=== PATIENT | male | born 1945 | race Caucasian/White ===

== ENCOUNTER 2016-09-29 18:32 | Emergency (ER) | payer MEDICARE, BC ==
[2016-09-29 19:58] VITALS: BP 146/63
[2016-09-29] MEDS ORDERED: DOXYcycline CAP(*) 100 MG PO ONE (20:05)
--- NOTE | 2016-09-29 20:13 | UC ---
Lower Extremity/Ankle HPI - HPI Summary HPI Summary: Noticed spot on R upper thigh today, thinks it's a tick. Last spent time outside 2 days ago, not sure when else he would have gotten it. - History of Current Complaint Chief Complaint: WILLISkin Stated Complaint: TICK BITE Time Seen by Provider: 09/29/16 20:00 Hx Obtained From: Patient Onset/Duration: Lasting Days Severity Initially: Mild Severity Currently: Mild Alleviating Factor(s): Rest Able to Bear Weight: Yes - Allergies/Home Medications Allergies/Adverse Reactions: Allergies Allergy/AdvReac Type Severity Reaction Status Date / Time No Known Allergies Allergy Verified 09/29/16 19:58 Home Medications: Home Medications Supplements* 09/29/16 [History] PMH/Surg Hx/FS Hx/Imm Hx Previously Healthy: Yes - Surgical History Surgical History: Yes Surgery Procedure, Year, and Place: cardiac ablation, pyloric stenosis as a (1944) - Family History Known Family History: Positive: Other - mother - breast/lung CA, dementia - both parents - Social History Lives: With Family Alcohol Use: Daily Alcohol Amount: 1-2 drinks daily Substance Use Type: None Smoking Status (MU): Never Smoked Tobacco Have You Smoked in the Last Year: No Review of Systems Constitutional: Negative Skin: Other - R thigh tick bite Eyes: Negative ENT: Negative Respiratory: Negative Cardiovascular: Negative Gastrointestinal: Negative Genitourinary: Negative Motor: Negative Neurovascular: Negative Musculoskeletal: Negative Neurological: Negative Psychological: Negative All Other Systems Reviewed And Are Negative: Yes Physical Exam Triage Information Reviewed: Yes Appearance: Well-Appearing, No Pain Distress, Well-Nourished Vital Signs: Initial Vital Signs Temp 97.4 F 09/29/16 19:54 Pulse 63 09/29/16 19:54 Resp 16 09/29/16 19:54 BP 146/63 09/29/16 19:54 Vital Signs Reviewed: Yes Eye Exam: Normal Eyes: Positive: Conjunctiva Clear ENT Exam: Normal ENT: Positive: Normal ENT inspection, Hearing grossly normal, Pharynx normal, TMs normal Dental Exam: Normal Neck exam: Normal Neck: Positive: Supple, Nontender, No Lymphadenopathy Respiratory Exam: Normal Respiratory: Positive: Chest non-tender, Lungs clear, Normal breath sounds, No respiratory distress, No accessory muscle use Cardiovascular Exam: Normal Cardiovascular: Positive: RRR, No Murmur Musculoskeletal Exam: Normal Musculoskeletal: Positive: ROM Intact Neurological Exam: Normal Neurological: Positive: Alert Psychological Exam: Normal Skin Exam: Other - small tick, appears engorged, removed from R thigh on exam with tick twisters. Pt [place] well. Lower Extremity Course/Dx - Differential Dx/Diagnosis Provider Diagnoses: Tick bite R thigh Discharge - Discharge Plan Condition: Stable Disposition: HOME Patient Education Materials: Tick Bite (ED) Referrals: Sabina King MD [Primary Care Provider] - 2 Weeks Additional Instructions: TICK BITE: You have been bitten by a tick. Once the tick is removed, these "bites" usually cause no problems. Tick fever, tick paralysis, [place] Spotted fever, and Lyme disease are uncommon -- but you should mention this tick bite to your doctor if you develop unusual symptoms in the next several weeks. If you develop any of the following, please see your physician promptly: (1) Fever, chills, or generalized malaise associated with a headache. (2) A red round area at the site of the bite (or elsewhere) (3) Joint pain, joint swelling or generalized weakness. (4) Redness, swelling, or drainage at the site of the bite. Check yourself, your children and your pets for ticks whenever you've been in an area where ticks live. To remove a tick, grasp it firmly with some tweezers or a string in a slipknot as close to its head as possible and pull it steadily. Ticks do not have a typical "head" attached to their body. There are mouth parts sticking out which they use to feed. If there are mouth parts left behind in the wound there is NO increased risk of Lyme infection; however, the chances of a bacterial skin infection (cellulitis) are higher. If mouth parts remain after tick removal, the best thing to do is apply warm soaks to the area 3-4 times per day to encourage the skin to expel the foreign material. DOXYCYCLINE: Doxycycline (Vibramycin, Doryx) is an antibiotic of the tetracycline family. This type of drug is useful for infections of the respiratory tract and genital tract, and is sometimes used for intestinal infections. Unlike most tetracyclines, doxycycline can be taken with food. It is longer acting, and (usually) less prone to side effects than regular tetracycline. Tetracycline antibiotics can stain immature teeth and SHOULD NOT BE TAKEN BY CHILDREN, NURSING MOTHERS, OR WOMEN. Tetracyclines can make you more prone to sunburn. Abdominal cramping, nausea, and diarrhea are occasional side effects. Women may experience vaginal yeast infections. Call the doctor at once if you develop hives, itching, shortness of breath , or lightheadedness. WHEN A TICK IS NOT ENGORGED AND HAS BEEN ON LESS THAN 24 HOURS - THE RISK FOR LYME IS NEGLIGIBLE. YOU CAN REMOVE THE TICK AND OBSERVE THE AREA ON YOUR OWN. FOLLOW-UP CARE: You should contact your private physician for follow-up care if you develop spreading redness near the site of the bite or on any other areas of the body. If you are unable to get a timely appointment, or if you are worsening, call us or return for re-evaluation.
== END 2016-09-29 20:20 | disposition home or self-care (01) ==
LOC: UCEAST 18:32
DX: S70.361A Insect bite (nonvenomous), right thigh, initial encounter (principal); W57.XXXA Bitten or stung by nonvenomous insect and other nonvenomous arthropods, initial encounter
CPT/HCPCS: 99212; A9270-GY; G0463

== ENCOUNTER 2017-10-09 09:16 | Emergency (ER) | payer MEDICARE, BC ==
[2017-10-09 09:29] VITALS: BP 134/67
--- OUTSIDE RECORDS SUMMARY | 2017-10-09 09:31 | XMS REPORT ---
:1945 External Reference #:[id number] Author Organization [facility] Address [address] [place] [address] Phone [phone] Care Team Providers Name Role Phone Sabina Rodriguez M.D., R.DLoli Primary Care Physician Unavailable Payers Type Date Identification Numbers Payment Provider Subscriber Medicare Primary Effective: Policy Number: Medicare - Bswny Chapin Bojorquez 2011 [id number] [facility] PayID: [id number] [address] [place] [address] Medigap Part B Effective: Policy Number: [facility](Hien Bojorquez 1999 [id number] Group Name: [facility] [address] PayID: [id number] [place] [address] Problems Date Description Provider Status Onset: 09/10/2011 Anemia Sabina Rodriguez M.D., R.D. Active Onset: 09/10/2011 Pure hypercholesterolemia Sabina Rodriguez M.D., R.D. Active Onset: 09/10/2011 Disorder of prostate Sabina Rodriguez M.D., R.D. Active Onset: 09/10/2011 Atrial fibrillation Sabina Rodriguez M.D., R.D. Resolved Resolved: 02/23/2012 Family History Date Family Member(s) Problem(s) Comments Father Gallstones Father Dementia Father Allergies penicillin : (1991) Father due to Unknown Heart attack or stroke Causes -- collapsed and Mother Cancer, Breast single mastectomy, no recurrance Mother Cancer, Lung in final year of her life. Not cause of . Mother Hypertension Mother Dementia severe in final two years or so : Mother due to Unknown preceded by (07/1996) Causes multiple infarcts over time First Daughter Diagnosed with anorexia Diagnosed with anorexia August 2009. Treated by August 2009. Treated by security incident response specialist, therapist, security incident response specialist, therapist, physician. By Apr 2011 regained normal weight (gain of 28 lbs)and normal eating. First Brother Alive And Well 2 YRS YOUNGER. Social History Type Date Description Comments Marital Status Lives With Spouse Lives With --D[facility] as Of Fall 2005. Diet Healthy, Well Balanced Occupation Works for [employer] in [place]. once a week. Mostly from home but goes there Occupation Retired August 01, 2011 Cigarette Use Never Smoked Cigarettes ETOH Use Currently consumes alcohol ETOH Use Rarely consumes beer ETOH Use Currently consumes 1 glasses of wine daily Smoking Patient has never smoked Daily Caffeine Consumes on average 1 cup of coffee per day Exercise Type/Frequency exercises regularly Exercise Type/Frequency . Goes to gym. Rows on machine. Allergies, Adverse Reactions, Alerts Date Description Reaction Status Severity Comments 06/24/2009 NKDA active Medications Medication Date Status Form Strength Qnty SIG Indications Ordering Provider Fish Oil 03/06 Active Capsules 1000mg 1 by mouth every day Reba Rodriguez, R.D. Niaspan 03/06 Active Tablets ER 500mg 180ta 1 po bid E78.0 bs Reba Rodriguez, R.D. Vitamin B-6 09/01 Active Tablets 34mg Sabina P5P Reba Rodriguez, R.D. Turmeric 09/01 Active Capsules 500mg 1 po qd Sabina Reba Rodriguez, R.D. Brain Energizer 08/13 Active alpha lipoic acidMichael curcumin, M.D., Dha, CoQ 10 R.D. Multivitamins 05 Active Tablets 30tab [id number] s Ultra 1 po danay Rodriguez M.D., R.D. Co-Enzyme Q10 09/09 Active Capsules 100mg 2 po qd Reba Rodriguez, R.D. Mens 50+ Multi Active Tablets Unknown Vitamin & /0000 Mineral Formula Immune Enhance Active Tablets Unknown / Prednisolone Active Suspension 1% Unknown Acetate Econazole Active Cream 1% apply to Unknown Nitrate rash twice a day Triamcinolone Active Cream 0.025% apply a Unknown Acetonide small amount to affected area 2 times a day Cephalexin 03/02 Hx Tablets 500mg 14tab 1 tablet by H60.11 s mouth twice [place] - daily for 7 III, 05/10 days PHYSICIAN NEONATOLOGY-C /2017 Niaspan 08/13 Hx Tablets ER 1000mg 90tab 1po a day E78.0 Neri Clark M.D., 03/06 R.D. Krill Oil 05/10 Hx Capsules 1000mg omega 3s astaxanthhilary Rodriguez, Neri 1 po qd M.DLoli, 03/06 R.D. /2015 Azithromycin 03/21 Hx Tablets 250mg 6tabs 2 po qd x 1 day, then 1 K.W. - po qd Juan, 04/05 M.D. Levaquin 01/24 Hx Tablets 500mg 10tab one qd x10 s days Miranda Martinez, 02/20 M.D. /2012 Doxycycline 11/[address] 100mg 2caps 2 po now for 911.4 Shawnti Hycl Part possible Rubina Anna, - lyme disease PHYSICIAN NEONATOLOGY-C 11/17 exposure /2012 Pradaxa 09/09 Hx Capsules 150mg 60cap 1 po bid Neri Clark M.D., 02/22 R.D. Magnesium Oxide 09/09 Hx Tablets 400mg Sabina Neri Rodriguez M.D., 01/26 R.D. Fish Oil 09/09 Hx Capsules 1000mg 1 po qd Neri Rodriguez M.D., 05/10 R.D. /2013 Physical 01/14 Hx Evaluate and Sabina treat left Neri Rodriguez M.D., 01/26 pain R.D. /2011 Levitra 06/24 Hx 302.72 Sabina Neri Rodriguez M.D., 05/10 R.D. /2013 Diltiazem CD 06/22 Hx Caps ER 120mg 1 qd Cheikh 24HR Osvaldo He M.D. 01/26 Aspirin 06/22 Hx Tablets 81mg 1 po qd Cheikh Osvaldo He M.D. 06/26 Coumadin 07/21 Hx Tablets 7.5mg Cheikh Osvaldo He M.D. 06/22 Flecanide 07/21 Hx 150 bid Cheikh Osvaldo He M.D. 01/26 Diltiazem CD 07/21 Hx Caps ER 240mg Cheikh 24HR Osvaldo He M.D. 06/22 Physical 05/25 Hx eval and Rx Shawnti Therapy as indicated Rubina Anna, - for elbow PHYSICIAN NEONATOLOGY-C 06/22 pain Hearing 03/03 Hx Medically Cheikh Evaluation- Clear For Lessinger Ears Hearing - Reba Soto 06/22 Hearing Eval And Hearing AIDS If Appropriate. Lovenox 12/19 Hx Injection 80mg/0.8 1unit 1 q12h Cheikh Graduate ML s Osvaldo Prefilled Reba He Syringes 03/03 Coumadin 12/19 Hx Tablets 7.5mg 30tab 1 po qd Cheikh /2004 s Osvaldo He M.D. 03/03 Niacin 11/10 Hx Tablets 500mg 2100 mg qd Sabina Neri Rodriguez M.D., 08/13 R.D. /2014 Viagra 11/10 Hx Tablets 50mg 6tabs 1/2-1 Tab Cheikh /2004 Before Osvaldo Montes M.D. 06/22 Cialis 11/10 Hx Tablets 20mg 3tabs Cheikh Osvaldo He M.D. 03/03 Triamcinolone 11/09 Hx 0.1% 30gm Apply bid to Cheikh 0.1% Cream /2002 affected Osvaldo - Reba du 12/09 Amoxicillin 10/08 Hx 500 63uni One tid X 21 Joanna /2001 ts Days Tima Oshea, 11/09 F.N.P.C. /2002 Diltiazem CD Hx Capsules 120mg 30cap 1 po qd Brand, /0000 s Neri Doty MD 12/09 Niaspan Hx Capsules 500mg Brand, /0000 Neri Doty MD 11/10 Diltiazem CD / Hx Capsules 180mg 1 po qd Brand, /0000 Neri Doty MD 03/11 Immunizations CPT Code Status Date Vaccine Lot # [id number] Given 04/08/2017 Influenza Virus Vaccine, Quadrivalent, 3 Yr > Quad, Preserv Free 69631 Given 02/27/2016 [place] [address] Given 06/04/2015 [place] [address] Given 08/13/2014 Prevnar-13 Pneumococcal Conjugate Vaccine [id number] 06067 Given 04/06/2013 Pneumovax 23 (PPSV23) 65+ years or high risk 2 to [id number] 63 year old 69736 Given 04/06/2013 Influenza Vaccine-Preservative Free 3 Yrs And [id number] Above 31494 Given 05/19/2012 Influenza Vaccine-Preservative Free 3 Yrs And Above 24058 Given 02/28/2011 Influenza Vaccine-Preservative Free 3 Yrs And Above 81199 Given 06/22/2008 Zoster Vaccine [id number] 71956 Given 03/11/2007 Tdap (Adacel) [id number] 79741 Given 03/11/2007 Influenza Virus Vaccine, 3 Yrs And Above [id number] 75508 Given 11/10/1994 DT (Adult) Vital Signs Date Vital Result Comment 09/10/2017 Weight 178.00 lb Weight in kg's 80.741 BP Systolic 144 mmHg BP Diastolic 72 mmHg Heart Rate 80 /min Body Temperature 97.8 F Respiratory Rate 16 /min 05/10/2017 Weight 184.00 lb Weight in kg's 83.462 BP Systolic 132 mmHg BP Diastolic 62 mmHg Heart Rate 68 /min Body Temperature 97.5 F Respiratory Rate 16 /min 04/12/2017 BP Systolic 130 mmHg BP Diastolic 62 mmHg Heart Rate 68 /min Body Temperature 97.3 F Respiratory Rate 15 /min 03/02/2017 Weight 180.00 lb Weight in kg's 81.648 BP Systolic 120 mmHg BP Diastolic 60 mmHg Heart Rate 68 /min Body Temperature 96.5 F 11/20/2016 Weight 179.00 lb Weight in kg's 81.194 BP Systolic 118 mmHg BP Diastolic 64 mmHg Heart Rate 56 /min Body Temperature 96.2 F Respiratory Rate 16 /min 09/23/2016 Weight 180.00 lb Weight in kg's 81.648 BP Systolic 148 mmHg BP Diastolic 60 mmHg Heart Rate 84 /min Body Temperature 97.4 F Respiratory Rate 16 /min Height 75.25 inches 6'3.25" BMI (Body Mass Index) 22.3 kg/m2 03/06/2016 Weight 177.00 lb Weight in kg's 80.287 BP Systolic 122 mmHg BP Diastolic 60 mmHg Heart Rate 64 /min Body Temperature 96.1 F Respiratory Rate 16 /min Height 76 inches 6'4" BMI (Body Mass Index) 21.5 kg/m2 O2 % BldC Oximetry 98 % 09/02/2015 Weight 178.00 lb Weight in kg's 80.741 BP Systolic 140 mmHg BP Diastolic 50 mmHg Heart Rate 68 /min 12/20/2014 Weight 172.00 lb Weight in kg's 78.019 BP Systolic 120 mmHg BP Diastolic 58 mmHg Heart Rate 68 /min 08/13/2014 Weight 178.00 lb Weight in kg's 80.741 BP Systolic 118 mmHg BP Diastolic 50 mmHg Heart Rate 68 /min Height 76 inches 6'4" BMI (Body Mass Index) 21.7 kg/m2 07/04/2014 Weight 181.00 lb Weight in kg's 82.102 BP Systolic 130 mmHg BP Diastolic 60 mmHg Heart Rate 56 /min 05/10/2013 Weight 176.00 lb Weight in kg's 79.834 BP Systolic 126 mmHg BP Diastolic 64 mmHg Heart Rate 84 /min Height 76 inches 6'4" BMI (Body Mass Index) 21.4 kg/m2 04/06/2013 Weight 179.00 lb Weight in kg's 81.194 BP Systolic 124 mmHg BP Diastolic 60 mmHg Heart Rate 68 /min Body Temperature 98.0 F O2 % BldC Oximetry 98 % 03/20/2013 Weight 179.00 lb Weight in kg's 81.194 BP Systolic 144 mmHg BP Diastolic 64 mmHg Heart Rate 72 /min Body Temperature 97.7 F O2 % BldC Oximetry 99 % 02/20/2013 Weight 176.00 lb Weight in kg's 79.834 BP Systolic 120 mmHg BP Diastolic 60 mmHg Heart Rate 68 /min O2 % BldC Oximetry 99 % level at rest 01/24/2013 Weight 175.00 lb Weight in kg's 79.380 BP Systolic 124 mmHg BP Diastolic 74 mmHg Heart Rate 82 /min Body Temperature 98.4 F O2 % BldC Oximetry 99 % 11/08/2012 Weight 177.00 lb Weight in kg's 80.287 BP Systolic 126 mmHg BP Diastolic 68 mmHg Heart Rate 63 /min Body Temperature 97.2 F O2 % BldC Oximetry 99 % 11/07/2012 Weight 175.00 lb Weight in kg's 79.380 BP Systolic 126 mmHg BP Diastolic 58 mmHg Heart Rate 64 /min 03/03/2012 Weight 179.00 lb Weight in kg's 81.194 BP Systolic 144 mmHg BP Diastolic 60 mmHg Heart Rate 80 /min 02/22/2012 Weight 180.00 lb Weight in kg's 81.648 BP Systolic 148 mmHg BP Diastolic 62 mmHg Heart Rate 68 /min 01/27/2012 Weight 176.00 lb Weight in kg's 79.834 BP Systolic 122 mmHg BP Diastolic 52 mmHg Heart Rate 68 /min Height 76.5 inches 6'4.50" BMI (Body Mass Index) 21.1 kg/m2 O2 % BldC Oximetry 98 % 11/16/2011 BP Systolic 108 mmHg BP Diastolic 48 mmHg Heart Rate 66 /min Body Temperature 96.8 F 11/10/2011 Weight 177.00 lb Weight in kg's 80.287 BP Systolic 120 mmHg BP Diastolic 60 mmHg Heart Rate 62 /min Body Temperature 96.3 F Height 76.5 inches 6'4.50" BMI (Body Mass Index) 21.3 kg/m2 09/10/2011 Weight 179.00 lb Weight in kg's 81.194 BP Systolic 126 mmHg BP Diastolic 56 mmHg Heart Rate 60 /min 12/11/2010 Weight 178.00 lb Weight in kg's 80.741 BP Systolic 130 mmHg BP Diastolic 58 mmHg Heart Rate 60 /min 06/26/2010 Weight 186.00 lb Weight in kg's 84.370 BP Systolic 120 mmHg BP Diastolic 68 mmHg Heart Rate 68 /min Height 76.25 inches 6'4.25" BMI (Body Mass Index) 22.5 kg/m2 07/20/2009 Weight 187.00 lb Weight in kg's 84.823 BP Systolic 134 mmHg BP Diastolic 60 mmHg Heart Rate 80 /min Body Temperature 96.6 F 06/24/2009 Weight 193.00 lb Weight in kg's 87.545 BP Systolic 132 mmHg BP Diastolic 66 mmHg Heart Rate 56 /min Height 76 inches 6'4" BMI (Body Mass Index) 23.5 kg/m2 11/05/2008 Weight 180.00 lb Weight in kg's 81.648 BP Systolic 138 mmHg BP Diastolic 60 mmHg Heart Rate 64 /min Body Temperature 97.1 F 06/22/2008 Weight 182.00 lb Weight in kg's 82.555 BP Systolic 110 mmHg BP Diastolic 60 mmHg Heart Rate 62 /min Height 76 inches 6'4" BMI (Body Mass Index) 22.2 kg/m2 12/23/2007 Weight 182.00 lb Weight in kg's 82.555 BP Systolic 120 mmHg BP Diastolic 60 mmHg Heart Rate 68 /min Height 76 inches 6'4" BMI (Body Mass Index) 22.2 kg/m2 07/22/2007 Weight 191.00 lb Weight in kg's 86.638 BP Systolic 120 mmHg BP Diastolic 62 mmHg Heart Rate 62 /min Height 76 inches 6'4" BMI (Body Mass Index) 23.2 kg/m2 03/11/2007 Weight 180.00 lb Weight in kg's 81.648 BP Systolic 110 mmHg BP Diastolic 46 mmHg Heart Rate 76 /min Height 76 inches 6'4" BMI (Body Mass Index) 21.9 kg/m2 03/03/2006 Weight 183.00 lb Weight in kg's 83.009 BP Systolic 112 mmHg BP Diastolic 58 mmHg Heart Rate 68 /min Height 76.25 inches 6'4.25" BMI (Body Mass Index) 22.1 kg/m2 12/19/2004 Weight 184.00 lb Weight in kg's 83.462 BP Systolic 106 mmHg BP Diastolic 68 mmHg Heart Rate 72 /min Height 75.5 inches 6'3.50" BMI (Body Mass Index) 22.7 kg/m2 11/10/2004 Weight 188.00 lb Weight in kg's 85.277 BP Systolic 110 mmHg BP Diastolic 70 mmHg Heart Rate 80 /min Height 76 inches 6'4" BMI (Body Mass Index) 22.9 kg/m2 12/10/2003 Weight 181.00 lb Weight in kg's 82.102 BP Systolic 120 mmHg BP Diastolic 58 mmHg Heart Rate 51 /min Respiratory Rate 18 /min Height 76 inches 6'4" BMI (Body Mass Index) 22.0 kg/m2 06/25/2003 Weight 191.00 lb Weight in kg's 86.638 BP Systolic 110 mmHg BP Diastolic 60 mmHg Heart Rate 82 /min Respiratory Rate 18 /min 01/18/2002 Weight 179.00 lb Weight in kg's 81.2 BP Systolic 120 mmHg BP Diastolic 80 mmHg Heart Rate 60 /min Respiratory Rate 16 /min Height 76.32 inches BMI (Body Mass Index) 21.6 kg/m2 10/08/2001 Weight 180.00 lb BP Systolic 110 mmHg BP Diastolic 60 mmHg Results Test Date Test Result H/L Range Note CBC Auto Diff 09/07/2017 White Blood Count 3.9 10^3/uL 3.5-10.8 Red Blood Count 4.27 10^6/uL 4.0-5.4 Hemoglobin 13.9 g/dL Low 14.0-18.0 Hematocrit 40 % Low 42-52 Mean Corpuscular Volume 94 fL 80-94 Mean Corpuscular Hemoglobin 33 pg High 27-31 Mean Corpuscular HGB Conc 35 g/dL 31-36 Red Cell Distribution Width 13 % 10.5-15 Platelet Count 151 10^3/uL 150-450 Mean Platelet Volume 7.7 um3 7.4-10.4 Abs Neutrophils 1.5 10^3/uL 1.5-7.7 Abs Lymphocytes 1.8 10^3/uL 1.0-4.8 Abs Monocytes 0.5 10^3/uL 0-0.8 Abs Eosinophils 0.1 10^3/uL 0-0.6 Abs Basophils 0 10^3/uL 0-0.2 Abs Nucleated RBC 0 10^3/uL Granulocyte % 38.4 % 38-83 Lymphocyte % 45.7 % 25-47 Monocyte % 12.5 % High 0-7 Eosinophil % 2.7 % 0-6 Basophil % 0.7 % 0-2 Nucleated Red Blood Cells % 0.3 Comp Metabolic Panel 09/07/2017 Sodium 142 mmol/L 139-145 Potassium 4.4 mmol/L 3.5-5.0 Chloride 107 mmol/L 101-111 Co2 Carbon Dioxide 30 mmol/L 22-32 Anion Gap 5 mmol/L 2-11 Glucose 94 mg/dL 70-100 Blood Urea Nitrogen 14 mg/dL 6-24 Creatinine 0.98 mg/dL 0.67-1.17 BUN/Creatinine Ratio 14.3 8-20 Calcium 9.5 mg/dL 8.6-10.3 Total Protein 6.1 g/dL Low 6.4-8.9 Albumin 4.1 g/dL 3.2-5.2 Globulin 2.0 g/dL 2-4 Albumin/Globulin Ratio 2.1 1-3 Total Bilirubin 0.60 mg/dL 0.2-1.0 Alkaline Phosphatase 70 U/L 34-104 Alt 20 U/L 7-52 Ast 26 U/L 13-39 Egfr Non- 75.2 >60 Egfr 96.7 >60 1 Laboratory test finding 09/07/2017 Hemoglobin A1c 5.7 % High 4.0-5.6 2 Lipid Profile (Trig/Chol/HDL) 09/07/2017 Triglycerides 78 mg/dL 3 Cholesterol 189 mg/dL 4 HDL Cholesterol 56.4 mg/dL 5 LDL Cholesterol 117 mg/dL 6 Laboratory test finding 10/20/2016 PSA Screening 0.641 ng/mL 0-4.0 Laboratory test finding 10/06/2016 Hepatitis C Antibody Nonreactive Nonreactive CMP - Comprehensive 10/06/2016 Sodium 139 mmol/L 133-145 Metabolic Potassium 4.2 mmol/L 3.5-5.0 Chloride 106 mmol/L 101-111 Co2 Carbon Dioxide 29 mmol/L 22-32 Anion Gap 4 mmol/L 2-11 Glucose 96 mg/dL 70-100 Blood Urea Nitrogen 18 mg/dL 6-24 Creatinine 0.86 mg/dL 0.67-1.17 BUN/Creatinine Ratio 20.9 High 8-20 Calcium 8.9 mg/dL 8.6-10.3 Total Protein 6.1 g/dL Low 6.4-8.9 Albumin 4.0 g/dL 3.2-5.2 Globulin 2.1 g/dL 2-4 Albumin/Globulin Ratio 1.9 1-3 Total Bilirubin 0.70 mg/dL 0.2-1.0 Alkaline Phosphatase 68 U/L 34-104 Alt 18 U/L 7-52 Ast 23 U/L 13-39 Egfr Non- 87.7 >60 Egfr 112.7 >60 7 Lipid Panel 10/06/2016 Triglycerides 66 mg/dL 8 Cholesterol 178 mg/dL 9 HDL Cholesterol 48.5 mg/dL 10 LDL Cholesterol 116 mg/dL 11 CBC No Diff 10/06/2016 White Blood Count 4.1 10^3/uL 3.5-10.8 Red Blood Count 4.36 10^6/uL 4.0-5.4 Hemoglobin 13.9 g/dL Low 14.0-18.0 Hematocrit 41 % Low 42-52 Mean Corpuscular Volume 93 fL 80-94 Mean Corpuscular Hemoglobin 32 pg High 27-31 Mean Corpuscular HGB Conc 34 g/dL 31-36 Red Cell Distribution Width 14 % 10.5-15 Platelet Count 165 10^3/uL 150-450 Mean Platelet Volume 8 um3 7.4-10.4 Laboratory test finding 08/26/2015 PSA Screening 0.526 ng/mL 0-4.000 12 CBC Auto Diff 08/26/2015 White Blood Count 4.4 10^3/uL 3.5-10.8 Red Blood Count 4.15 10^6/uL 4.0-5.4 Hemoglobin 13.0 g/dL Low 14.0-18.0 Hematocrit 39 % Low 42-52 Mean Corpuscular Volume 95 fL High 80-94 Mean Corpuscular Hemoglobin 31 pg 27-31 Mean Corpuscular HGB Conc 33 g/dL 31-36 Red Cell Distribution Width 13 % 10.5-15 Platelet Count 168 10^3/uL 150-450 Mean Platelet Volume 8 um3 7.4-10.4 Abs Neutrophils 2.0 10^3/uL 1.5-7.7 Abs Lymphocytes 1.7 10^3/uL 1.0-4.8 Abs Monocytes 0.5 10^3/uL 0-0.8 Abs Eosinophils 0.1 10^3/uL 0-0.6 Abs Basophils 0 10^3/uL 0-0.2 Abs Nucleated RBC 0.01 10^3/uL Granulocyte % 46.2 % 38-83 Lymphocyte % 39.0 % 25-47 Monocyte % 12.4 % High 1-9 Eosinophil % 1.9 % 0-6 Basophil % 0.5 % 0-2 Nucleated Red Blood Cells % 0.1 Laboratory test finding 08/26/2015 Hemoglobin A1c 5.8 % Less than 6.0 13 Lipid Profile (Trig/Chol/HDL) 08/26/2015 Triglycerides 86 mg/dL 14 Cholesterol 193 mg/dL 15 HDL Cholesterol 46.8 mg/dL 16 LDL Cholesterol 129 mg/dL 17 Comp Metabolic Panel 08/26/2015 Sodium 139 mmol/L 133-145 Potassium 4.5 mmol/L 3.5-5.0 Chloride 105 mmol/L 101-111 Co2 Carbon Dioxide 31 mmol/L 22-32 Anion Gap 3 mmol/L 2-11 Glucose 92 mg/dL 70-100 Blood Urea Nitrogen 19 mg/dL 6-24 Creatinine 1.00 mg/dL 0.67-1.17 BUN/Creatinine Ratio 19.0 8-20 Calcium 9.3 mg/dL 8.6-10.3 Total Protein 6.2 g/dL Low 6.4-8.9 Albumin 3.8 g/dL 3.2-5.2 Globulin 2.4 g/dL 2-4 Albumin/Globulin Ratio 1.6 1-3 Total Bilirubin 0.60 mg/dL 0.2-1.0 Alkaline Phosphatase 63 U/L 34-104 Alt 26 U/L 7-52 Ast 45 U/L High 13-39 Egfr Non- 73.9 >60 Egfr 95.0 >60 18 Comp Metabolic Panel 12/20/2014 Sodium 140 mmol/L 133-145 Potassium 4.5 mmol/L 3.5-5.0 Chloride 104 mmol/L 101-111 Co2 Carbon Dioxide 29 mmol/L 22-32 Anion Gap 7 mmol/L 2-11 Glucose 99 mg/dL 70-100 Blood Urea Nitrogen 27 mg/dL High 6-24 Creatinine 1.09 mg/dL 0.67-1.17 BUN/Creatinine Ratio 24.8 High 8-20 Calcium 9.2 mg/dL 8.6-10.3 Total Protein 6.5 g/dL 6.4-8.9 Albumin 4.2 g/dL 3.2-5.2 Globulin 2.3 g/dL 2-4 Albumin/Globulin Ratio 1.8 1-3 Total Bilirubin 0.80 mg/dL 0.2-1.0 Alkaline Phosphatase 74 U/L 34-104 Alt 24 U/L 7-52 Ast 32 U/L 13-39 Egfr Non- 66.9 >60 Egfr 86.0 >60 19 CBC Auto Diff 12/20/2014 White Blood Count 5.3 10^3/uL 4.8-10.8 Red Blood Count 4.10 10^6/uL 4.0-5.4 Hemoglobin 13.2 g/dL Low 14.0-18.0 Hematocrit 39 % Low 42-52 Mean Corpuscular Volume 95 fL High 80-94 Mean Corpuscular Hemoglobin 32 pg High 27-31 Mean Corpuscular HGB Conc 34 g/dL 31-36 Red Cell Distribution Width 15 % 10.5-15 Platelet Count 184 10^3/uL 150-450 Mean Platelet Volume 7 um3 Low 7.4-10.4 Abs Neutrophils 2.4 10^3/uL 1.5-7.7 Abs Lymphocytes 2.2 10^3/uL 1.0-4.8 Abs Monocytes 0.6 10^3/uL 0-0.8 Abs Eosinophils 0.1 10^3/uL 0-0.6 Abs Basophils 0 10^3/uL 0-0.2 Abs Nucleated RBC 0 10^3/uL Granulocyte % 44.3 % 38-83 Lymphocyte % 42.3 % 25-47 Monocyte % 10.8 % High 1-9 Eosinophil % 1.9 % 0-6 Basophil % 0.7 % 0-2 Nucleated Red Blood Cells % 0.1 Laboratory test finding 12/20/2014 TSH (Thyroid Stimulating 3.00 ?IU/mL 0.34-5.60 Horm) Insulin Level 20.6 mcIU/mL 2.6 - 24.9 20 Hemoglobin A1c 6.3 % High Less than 6.0 21 Lipid Profile (Trig/Chol/HDL) 12/20/2014 Cholesterol 189 mg/dL 22 HDL Cholesterol 45.9 mg/dL 23 Triglycerides 124 mg/dL 24 LDL Cholesterol 118 mg/dL 25 Lipid Profile (Trig/Chol/HDL) 11/29/2014 Triglycerides 107 mg/dL 26, 27 Cholesterol 129 mg/dL 26, 28 HDL Cholesterol 41.0 mg/dL 26, 29 LDL Cholesterol 67 mg/dL 26, 30 Comp Metabolic Panel 11/29/2014 Sodium 140 mmol/L 133-145 26 Potassium 3.9 mmol/L 3.5-5.0 26 Chloride 105 mmol/L 101-111 26 Co2 Carbon Dioxide 30 mmol/L 22-32 26 Anion Gap 5 mmol/L 2-11 26 Glucose 183 mg/dL High 70-100 26 Blood Urea Nitrogen 22 mg/dL 6-24 26 Creatinine 1.03 mg/dL 0.67-1.17 26 BUN/Creatinine Ratio 21.4 High 8-20 26 Calcium 8.7 mg/dL 8.6-10.3 26 Total Protein 5.8 g/dL Low 6.4-8.9 26 Albumin 3.7 g/dL 3.2-5.2 26 Globulin 2.1 g/dL 2-4 26 Albumin/Globulin Ratio 1.8 1-3 26 Total Bilirubin 0.60 mg/dL 0.2-1.0 26 Alkaline Phosphatase 86 U/L 34-104 26 Alt 66 U/L High 7-52 26 Ast 73 U/L High 13-39 26 Egfr Non- 71.4 >60 26 Egfr 91.8 >60 26, 31 Urine DIP 08/13/2014 Specific [place] 1.020 1.01-1.02 Urine pH 5 5-6 Leukocytes NEG Neg Urine Nitrites NEG Neg Total Protein, Urine NEG Neg Urine Glucose NORM Norm Urine Ketones NEG Neg Urobilinogen NORM Norm Urine Bilirubin NEG Neg Urine Blood NEG Neg Lipid Panel 07/11/2014 Triglycerides 147 mg/dL 32, 33 Cholesterol 224 mg/dL 32, 34 HDL Cholesterol 40.4 mg/dL 32, 35 LDL Cholesterol 154 mg/dL 32, 36 [facility] - Comprehensive Metabolic 07/11/2014 Sodium 140 mmol/L 133-145 32 Potassium 4.2 mmol/L 3.5-5.0 32 Chloride 106 mmol/L 101-111 32 Co2 Carbon Dioxide 30 mmol/L 22-32 32 Anion Gap 4 mmol/L 2-11 32 Glucose 93 mg/dL 70-100 32 Blood Urea Nitrogen 16 mg/dL 6-24 32 Creatinine 1.05 mg/dL 0.67-1.17 32 BUN/Creatinine Ratio 15.2 8-20 32 Calcium 9.5 mg/dL 8.6-10.3 32 Total Protein 6.4 g/dL 6.4-8.9 32 Albumin 4.1 g/dL 3.2-5.2 32 Globulin 2.3 g/dL 2-4 32 Albumin/Globulin Ratio 1.8 1-3 32 Total Bilirubin 0.50 mg/dL 0.2-1.0 32 Alkaline Phosphatase 61 U/L 34-104 32 Alt 16 U/L 7-52 32 Ast 21 U/L 13-39 32 Egfr Non- 70.0 >60 32 Egfr 90.1 >60 32, 37 Laboratory test 07/11/2014 TSH (Thyroid 3.51 IU/mL 0.34-5.60 32, 38 finding Stimulating Horm) CBC - Complete Blood 07/11/2014 White Blood Count 4.6 10^3/uL Low 4.8- 10.8 32 Count Red Blood Count 4.40 10^6/uL 4.0-5.4 32 Hemoglobin 14.1 g/dL 14.0-18.0 32 Hematocrit 41 % Low 42-52 32 Mean Corpuscular Volume 93 fL 80-94 32 Mean Corpuscular Hemoglobin 32 pg High 27-31 32 Mean Corpuscular HGB Conc 35 g/dL 31-36 32 Red Cell Distribution Width 13 % 10.5-15 32 Platelet Count 189 10^3/uL 150-450 32 Mean Platelet Volume 7 um3 Low 7.4-10.4 32 Laboratory test finding 07/11/2014 PSA Screening 0.651 ng/mL 0-4.000 32 , 39 Lipid Panel 07/18/2013 Triglycerides 125 mg/dL 40 Cholesterol 164 mg/dL 41 HDL Cholesterol 30.5 mg/dL 42 LDL Cholesterol 109 mg/dL 43 Urine DIP 05/10/2013 Leukocytes NEG Neg Urine Nitrites NEG Neg Urine pH 5 5-6 Total Protein, Urine NEG Neg Urine Glucose NORM Norm Urine Ketones NEG Neg Urobilinogen NORM Norm Urine Bilirubin NEG Neg Urine Blood NEG Neg Specific [place] 1.025 High 1.01-1.02 Comp Metabolic Panel 05/05/2013 Sodium 138 mmol/L 133-145 Potassium 4.3 mmol/L 3.5-5.0 Chloride 103 mmol/L 101-111 Co2 Carbon Dioxide 26.0 mmol/L 22-32 Anion Gap 9.0 mmol/L 2-11 Glucose 96 mg/dL 70-100 Blood Urea Nitrogen 18 mg/dL 6-24 Creatinine 0.80 mg/dL 0.50-1.40 BUN/Creatinine Ratio 22.5 High 8-20 Calcium 9.0 mg/dL 8.1-9.9 Total Protein 5.9 g/dL Low 6.2-8.1 Albumin 4.0 g/dL 3.2-5.2 Globulin 1.9 g/dL Low 2-4 Albumin/Globulin Ratio 2.1 1-3 Total Bilirubin 0.7 mg/dL 0.4-1.5 Alkaline Phosphatase 68 U/L 30-110 Alt 21 U/L 14-54 Ast 24 U/L 12-42 Egfr Non- 96.1 >60 Egfr 123.6 >60 44 Lipid Profile (Trig/Chol/HDL) 05/05/2013 Triglycerides 144 mg/dL 40-200 Cholesterol 242 mg/dL High Less than 200 HDL Cholesterol 44 mg/dL 40-60 45 Cholesterol/HDL Ratio 5.5 Average High 1-4.44 LDL Cholesterol 169.2 High Less Than 100 46 Laboratory test finding 05/05/2013 Creatine Kinase 84 U/L 0-200 CBC Auto Diff 05/05/2013 White Blood Count 5.2 10^3/uL 4.8-10.8 Red Blood Count 4.48 10^6/uL 4.0-5.4 Hemoglobin 14.0 g/dL 14.0-18.0 Hematocrit 40 % Low 42-52 Mean Corpuscular Volume 90 fL 80-94 Mean Corpuscular Hemoglobin 31 pg 27-31 Mean Corpuscular HGB Conc 35 g/dL 31-36 Red Cell Distribution Width 13 % 10.5-15 Platelet Count 206 10^3/uL 150-450 Mean Platelet Volume 7 um3 Low 7.4-10.4 Abs Neutrophils 2.4 10^3/uL 1.5-7.7 Abs Lymphocytes 2.0 10^3/uL 1.0-4.8 Abs Monocytes 0.6 10^3/uL 0-0.8 Abs Eosinophils 0.2 10^3/uL 0-0.6 Abs Basophils 0 10^3/uL 0-0.2 Abs Nucleated RBC 0.01 10^3/uL Granulocyte % 46.8 % 38-83 Lymphocyte % 37.5 % 25-47 Monocyte % 11.8 % High 1-9 Eosinophil % 3.3 % 0-6 Basophil % 0.6 % 0-2 Nucleated Red Blood Cells % 0.2 Laboratory test finding 04/17/2013 PSA Diagnostic 0.721 ng/mL 0-4.000 47 Laboratory test finding 03/23/2013 Blood Urea Nitrogen 14 mg/dL 6-24 Creatinine 03/23/2013 Creatinine 0.90 mg/dL 0.50-1.40 Egfr Non- 83.9 >60 Egfr 107.9 >60 48 Laboratory test finding 01/24/2013 Blood Urea Nitrogen 17 mg/dL 6-24 Creatinine 01/24/2013 Creatinine 0.90 mg/dL 0.50-1.40 Egfr Non- 83.9 >60 Egfr 107.9 >60 49 Laboratory test finding 10/14/2012 PSA Diagnostic 0.62 ng/mL 0-4.0 Laboratory test finding 03/18/2012 Angiotension Converting 36 U/L 8 - 53 50 Enzyme Vitamin B1 Whole Blood 180 nmol/L 70-180 51 Zinc Level 0.64 g/mL 0.66-1.10 52 Laboratory test finding 03/18/2012 TSH (Thyroid Stimulating 2.29 MIU/ML 0.34-5.60 Horm) Neutrophil Cytoplasmic 03/18/2012 C-Anca Negative Negative AB P Anca Negative Negative Anca Reviewed By MD Shelton Goddard <SEE NOTE> 53 Laboratory test finding 03/03/2012 PSA Screening 0.5 NG/ML 0-4.0 54 Urine DIP 01/27/2012 Leukocytes NEG Neg Urine Nitrites NEG Neg Urine pH 5 5-6 Total Protein, Urine NEG Neg Urine Glucose NORM Norm Urine Ketones NEG Neg Urobilinogen NORM Norm Urine Bilirubin NEG Neg Urine Blood NEG Neg Specific [place] NA Low 1.01-1.02 CBC With Manual Diff 01/25/2012 White Blood Count 5.0 CUMM 4.8-10.8 Red Cell Count 4.30 CUMM Low 4.6-6.2 Hemoglobin 13.8 g/dL Low 14.0-18.0 Hematocrit 41 % Low 42-52 Mean Corpuscular Volume 94 um3 80-94 Mean Corpuscular Hemoglob 32 pg High 27-31 Mean Corpuscular HGB Cone 34 g/dL 32-36 Redcell Distribution WDTH 14 % 10.5-15 Platelet Count 176 CUMM 150-450 Mean Platelet Volume 7.9 um3 7.4-10.4 Absolute Neutrophil Count 2.3 1.5-7.7 Polysegmented Neutrophil 45 % 38-83 Band Neutrophil 1 % 0-8 Lymphocyte 38 % 25-47 Monocyte 10 % 0-13 Eosinophil 1 % 0-6 Atypical Lymph 5 % 0-6 RBC Morphology NORMAL Lipid Profile (Trig/Chol/HDL) 01/25/2012 Triglyceride 113 mg/dL 40-200 Cholesterol 190 mg/dL Less Than 200 55 High Density Lipoprotein 39 mg/dL Low 40-60 56 Cholesterol/HDL Ratio 4.87 AVERAGE 1-4.97 Low Density Lipoprotein 128 mg/dL High Less Than 100 57 Laboratory test finding 01/25/2012 CPK (Creatine Kinase) 57 U/L 0-200 Basic Metabolic Panel 10/05/2011 Sodium 140 mmol/L 135-145 Potassium 4.2 mmol/L 3.5-5.0 Chloride 104 mmol/L 101-111 Co2 (Carbon Dioxide) 31.0 mmol/L 22-32 Anion Gap 5.0 mmol/L 2-11 58 Glucose 84 mg/dL 70-100 BUN 14 mg/dL 6-24 Creatinine 0.8 mg/dL 0.50-1.40 One Over Creatinine 1.25 BUN/Creatinine Ratio 17.5 8-20 Calcium 9.2 mg/dL 8.1-9.9 eGFR Non- 96.7 > 60 eGFR 124.4 > 60 59 Lipid Profile (Trig/Chol/HDL) 09/10/2011 Triglyceride 86 mg/dL 40-200 Cholesterol 215 mg/dL High Less Than 200 60 High Density Lipoprotein 42 mg/dL 40-60 61 Cholesterol/HDL Ratio 5.12 AVERAGE High 1-4.97 Low Density Lipoprotein 156 mg/dL High Less Than 100 62 CBC Auto Diff 09/10/2011 White Blood Count 4.5 CUMM Low 4.8-10.8 Red Cell Count 4.14 CUMM Low 4.6-6.2 Hemoglobin 13.8 g/dL Low 14.0-18.0 Hematocrit 39 % Low 42-52 Mean Corpuscular Volume 95 um3 High 80-94 Mean Corpuscular Hemoglob 33 pg High 27-31 Mean Corpuscular HGB Cone 35 g/dL 32-36 Redcell Distribution WDTH 14 % 10.5-15 Platelet Count 190 CUMM 150-450 Mean Platelet Volume 8.0 um3 7.4-10.4 Gran % 50.8 % 38-83 Lymph % 35.1 % 25-47 Mononuclear % 10.6 % High 1-9 Eosinophil % 2.8 % 0-6 Basophil % 0.7 % 0-2 Abs Lymphs 1.6 1.0-4.8 Abs Mononuclear 0.5 0-0.8 Absolute Neutrophil Count 2.3 1.5-7.7 Abs Eosinophils 0.1 0-0.6 Abs Basophils 0 0-0.2 Laboratory test finding 09/10/2011 CPK (Creatine Kinase) 78 U/L 0-200 Basic Metabolic Panel 08/14/2011 Sodium 141 mmol/L 135-145 Potassium 4.8 mmol/L 3.5-5.0 Chloride 106 mmol/L 101-111 Co2 (Carbon Dioxide) 29.0 mmol/L 22-32 Anion Gap 6.0 mmol/L 2-11 63 Glucose 93 mg/dL 70-100 BUN 23 mg/dL 6-24 Creatinine 1.2 mg/dL 0.50-1.40 One Over Creatinine 0.83 BUN/Creatinine Ratio 19.2 8-20 Calcium 9.4 mg/dL 8.1-9.9 eGFR Non- 60.6 > 60 eGFR 77.9 > 60 64 Laboratory test finding 08/05/2011 PSA,Diagnostic 0.64 NG/ML 0-4 Laboratory test finding 11/19/2010 LDH 132 U/L 95-185 Iron & Iron Binding Capacity 11/19/2010 Iron Total 60 g/dL 45-182 Unsaturated Iron Binding 245 g/dL Total Iron Binding Capacity 305 g/dL 250-450 % Iron Saturation 20 % 15-55 Retic Count 11/19/2010 Red Cell Count 4.07 CUMM Low 4.6-6.2 Hemoglobin 13.1 g/dL Low 14.0-18.0 Hematocrit 38 % Low 42-52 Reticulocyte Count 1.24 % 0.5-1.5 Corrected Retic 1.0 % 0.5-1.5 Retic Index 0.7 Mean Retic Volume 113.6 Immature Retic Fraction 0.29 RBC Retic Count 4.07 CUMM Low 4.6-6.2 Hematocrit For Retic Coun 38 % Low 42-52 CBC No Diff 11/06/2010 White Blood Count 4.3 CUMM Low 4.8-10.8 Red Cell Count 4.20 CUMM Low 4.6-6.2 Hemoglobin 13.3 g/dL Low 14.0-18.0 Hematocrit 40 % Low 42-52 Mean Corpuscular Volume 94 um3 80-94 Mean Corpuscular Hemoglob 32 pg High 27-31 Mean Corpuscular HGB Cone 34 g/dL 32-36 Redcell Distribution WDTH 13 % 10.5-15 Platelet Count 190 CUMM 150-450 Mean Platelet Volume 7.9 um3 7.4-10.4 Lipid Panel 11/06/2010 Triglyceride 84 mg/dL 40-200 Cholesterol 210 mg/dL High Less Than 200 65 High Density Lipoprotein 39 mg/dL Low 40-60 66 Cholesterol/HDL Ratio 5.38 AVERAGE High 1-4.97 Low Density Lipoprotein 154 mg/dL High Less Than 100 67 Laboratory test finding 07/24/2010 PSA,Diagnostic 0.60 NG/ML 0-4 68 Urine DIP 06/26/2010 Leukocytes NEG Neg Urine Nitrites NEG Neg Urine pH 5 5-6 Total Protein, Urine TRACE Neg Urine Glucose NORM Norm Urine Ketones NEG Neg Urobilinogen NORM Norm Urine Bilirubin NEG Neg Urine Blood NEG Neg Specific [place] NA Low 1.01-1.02 CMP - Comprehensive Metabolic 06/19/2010 Sodium 141 mmol/L 135-145 Potassium 4.0 mmol/L 3.5-5.0 Chloride 106 mmol/L 101-111 Co2 (Carbon Dioxide) 30.0 mmol/L 22-32 Anion Gap 5.0 mmol/L 2-11 69 Glucose 84 mg/dL 70-100 BUN 17 mg/dL 6-24 Creatinine 1.10 mg/dL 0.50-1.40 One Over Creatinine 0.90 BUN/Creatinine Ratio 15.5 8-20 Calcium 9.1 mg/dL 8.1-9.9 Total Protein 6.1 GM/DL Low 6.2-8.1 Albumin 4.1 GM/DL 3.2-5.2 Globulin 2.0 GM/DL 2-4 Albumin/Globulin Ratio 2.1 1-3 Bilirubin Total 0.8 mg/dL 0.4-1.5 70 Alkaline Phosphatase 65 U/L 39-117 Alt (SGPT) 17 U/L 17-63 Ast (Sgot) 19 U/L 12-42 eGFR Non- 67.2 > 60 eGFR 86.4 > 60 71 Lipid Panel 06/19/2010 Triglyceride 119 mg/dL 40-200 Cholesterol 227 mg/dL High Less Than 200 72 High Density Lipoprotein 39 mg/dL Low 40-60 73 Cholesterol/HDL Ratio 5.82 AVERAGE High 1-4.97 Low Density Lipoprotein 164 mg/dL High Less Than 100 74 Hemogram 06/19/2010 White Blood Count 5.1 CUMM 4.8-10.8 Red Cell Count 4.36 CUMM Low 4.6-6.2 Hemoglobin 13.9 g/dL Low 14.0-18.0 Hematocrit 41 % Low 42-52 Mean Corpuscular Volume 94 um3 80-94 Mean Corpuscular Hemoglob 32 pg High 27-31 Mean Corpuscular HGB Cone 34 g/dL 32-36 Redcell Distribution WDTH 13 % 10.5-15 Platelet Count 210 CUMM 150-450 Mean Platelet Volume 7.9 um3 7.4-10.4 Laboratory test finding 06/19/2010 PSA,Diagnostic 0.59 NG/ML 0-4 75 Laboratory test finding 01/23/2010 PSA,Diagnostic 0.51 NG/ML 0-4 76 CBC With Electronic Diff 09/10/2009 White Blood Count 4.5 CUMM Low 4.8- 10.8 Red Cell Count 4.50 CUMM Low 4.6-6.2 Hemoglobin 14.7 g/dL 14.0-18.0 Hematocrit 42 % 42-52 Mean Corpuscular Volume 93 um3 80-94 Mean Corpuscular Hemoglob 33 pg High 27-31 Mean Corpuscular HGB Cone 35 g/dL 32-36 Redcell Distribution WDTH 14 % 10.5-15 Platelet Count 225 CUMM 150-450 Mean Platelet Volume 7.0 um3 Low 7.4-10.4 Gran % 53.8 % 38-83 Lymph % 32.5 % 25-47 Mononuclear % 11.2 % High 1-9 Eosinophil % 2.0 % 0-6 Basophil % 0.5 % 0-2 Abs Lymphs 1.5 1.0-4.8 Abs Mononuclear 0.5 0-0.8 Absolute Neutrophil Count 2.4 1.5-7.7 Abs Eosinophils 0.1 0-0.6 Abs Basophils 0 0-0.2 Iron & Iron Binding Capacity 09/10/2009 Iron Total 103 g/dL 45-182 Unsaturated Iron Binding 237 g/dL Total Iron Binding Capacity 340 g/dL 250-450 % Iron Saturation 30 % 15-55 Surgical Pathology 07/30/2009 Surgical Pathology <SEE 77 NOTE> Hemoccult 07/05/2009 Stool-Occult Blood NEG Neg #1 Stool-Occult Blood #2 NEG Neg Stool-Occult Blood #3 NEG Neg Laboratory test finding 06/24/2009 TSH (Thyrotropin) 2.720 uIU/ml 0.350- 5.500 Iron/Tibc,%Sat Group 06/24/2009 Iron 43 g/dL Low 46-155 Total Iron Binding Cap. 247 g/dL Low 250-450 % Iron Saturation 17.4 % 13.0-45.0 Laboratory test finding 06/24/2009 Vitamin B-12 1103 pg/mL 78 Vitamin D, 25 Oh 48.6 ng/mL 32.0-100.0 79 Urine DIP 06/24/2009 Leukocytes NEG Neg Urine Nitrites NEG Neg Urine pH 5 5-6 Total Protein, Urine NEG Neg Urine Glucose NORM Norm Urine Ketones NEG Neg Urobilinogen NORM Norm Urine Bilirubin NEG Neg Urine Blood NEG Neg Specific [place] N/A Low 1.01-1.02 Lipid Panel 06/17/2009 Triglyceride 62 mg/dL 40-200 Cholesterol 172 mg/dL Less Than 200 80 High Density Lipoprotein 40 mg/dL 40-60 81 Cholesterol/HDL Ratio 4.30 AVERAGE 1-4.97 Low Density Lipoprotein 120 mg/dL High Less Than 100 82 CMP - Comprehensive Metabolic 06/17/2009 Sodium 141 mmol/L 135-145 Potassium 4.2 mmol/L 3.5-5.0 Chloride 106 mmol/L 101-111 Co2 (Carbon Dioxide) 29.0 mmol/L 22-32 Anion Gap 6.0 mmol/L 2-11 83 Glucose 99 mg/dL 70-100 84 BUN 19 mg/dL 6-24 Creatinine 1.30 mg/dL 0.50-1.40 One Over Creatinine 0.70 BUN/Creatinine Ratio 14.6 8-20 Calcium 9.3 mg/dL 8.1-9.9 85 Total Protein 5.9 GM/DL Low 6.2-8.1 Albumin 3.9 GM/DL 3.2-5.2 Globulin 2.0 GM/DL 2-4 Albumin/Globulin Ratio 2.0 1-3 Bilirubin Total 0.5 mg/dL 0.4-1.5 86 Alkaline Phosphatase 67 U/L 39-117 Alt (SGPT) 28 U/L 17-63 Ast (Sgot) 29 U/L 12-42 eGFR Non- 59.1 > 60 eGFR 71.5 > 60 87 CBC - Complete Blood Count 06/17/2009 White Blood Count 4.6 CUMM Low 4.8- 10.8 Red Cell Count 4.37 CUMM Low 4.6-6.2 Hemoglobin 13.9 g/dL Low 14.0-18.0 Hematocrit 40 % Low 42-52 Mean Corpuscular Volume 92 um3 80-94 Mean Corpuscular Hemoglob 32 pg High 27-31 Mean Corpuscular HGB Cone 35 g/dL 32-36 Redcell Distribution WDTH 14 % 10.5-15 Platelet Count 206 CUMM 150-450 Mean Platelet Volume 7.6 um3 7.4-10.4 Gran % 42.3 % 38-83 Lymph % 42.9 % 25-47 Mononuclear % 10.9 % High 1-9 Eosinophil % 3.4 % 0-6 Basophil % 0.5 % 0-2 Abs Lymphs 2.0 1.0-4.8 Abs Mononuclear 0.5 0-0.8 Absolute Neutrophil Count 1.9 1.5-7.7 Abs Eosinophils 0.2 0-0.6 Abs Basophils 0 0-0.2 Laboratory test finding 06/17/2009 PSA Screening 0.72 NG/ML 0-4 88 CBC With Manual Diff 11/04/2008 White Blood Count 10.8 CUMM 4.8-10.8 Red Cell Count 4.33 CUMM Low 4.6-6.2 Hemoglobin 13.8 g/dL Low 14.0-18.0 Hematocrit 41 % Low 42-52 Mean Corpuscular Volume 93 um3 80-94 Mean Corpuscular Hemoglob 32 pg High 27-31 Mean Corpuscular HGB Cone 34 g/dL 32-36 Redcell Distribution WDTH 14 % 10.5-15 Platelet Count 242 CUMM 150-450 Mean Platelet Volume 7.9 um3 7.4-10.4 Polysegmented Neutrophil 64 % 38-83 Band Neutrophil 8 % 0-8 Lymphocyte 21 % Low 25-47 Monocyte 5 % 0-13 Atypical Lymph 2 % 0-6 Absolute Neutrophil Count 7.7 RBC Morphology NORMAL Laboratory test 11/04/2008 Uric Acid 6.1 mg/dL 2.6-7.2 finding Rapid Strep A 10/21/2008 Rapid Strep A The philosophy instructor 89 <SEE NOTE> Laboratory test 10/21/2008 Throat-Beta Strep NF 90 finding Culture Surgical Pathology 07/12/2008 Surgical Pathology R PROSTATE CA 91 Lipid Profile 06/22/2008 Cholesterol, Total 209 mg/dL High 120-200 92 HDL Cholesterol 40 mg/dL 40-60 LDL Cholesterol, Calc. 146 mg/dL 93 Triglycerides 115 mg/dL 94 LDL/HDL Cholesterol 3.7 95 Chol/HDL Cholesterol 5.2 96 Comprehensive Metabolic 06/22/2008 Glucose 89 mg/dL 70-100 BUN 18 mg/dL 5-21 Creatinine, Serum 1.2 mg/dL 0.6-1.5 Sodium 142 mmol/L 136-146 Potassium 4.1 mmol/L 3.5-5.3 Chloride 107 mmol/L 98-110 Carbon Dioxide 26 mmol/L 20-32 Albumin 4.5 g/dL 3.5-4.7 Protein, Total 6.8 g/dL 6.4-8.3 Calcium 9.3 mg/dL 8.4-10.4 Alkaline Phosphatase 80 U/L 10-118 Sgot (Ast) 19 U/L 3-40 SGPT (Alt) 18 U/L 7-50 Bilirubin, Total 0.40 mg/dL 0.30-1.20 Laboratory test finding 06/22/2008 PSA 2.3 ng/ml 0.0-4.0 97 Vitamin B-12 582 pg/mL 98 GFR (Calculated) 06/22/2008 GFR (Calculated) >60 99 Urine DIP 06/22/2008 Leukocytes neg Neg Urine Nitrites neg Neg Urine pH 5 5-6 Total Protein, Urine neg Neg Urine Glucose norm Norm Urine Ketones neg Neg Urobilinogen norm Norm Urine Bilirubin neg Neg Urine Blood neg Neg Specific [place] n/a Low 1.01-1.02 Urine DIP 03/11/2007 Leukocytes NEG Neg Urine Nitrites NEG Neg Urine pH 5 5-6 Total Protein, Urine NEG Neg Urine Glucose NORM Norm Urine Ketones NEG Neg Urobilinogen NORM Norm Urine Bilirubin NEG Neg Urine Blood NEG Neg Specific [place] NA Low 1.01-1.02 Comp Metabolic Panel 02/07/2007 One Over Creatinine 0.90 32 Anion Gap 5.0 mmol/L 2-11 32, 100 Albumin/Globulin Ratio 1.7 1-3 32 Albumin 4.1 GM/DL 3.2-5.2 32 Alkaline Phosphatase 61 U/L 39-117 32 Alt (SGPT) 18 U/L 17-63 32 Ast (Sgot) 19 U/L 12-42 32 BUN 18 mg/dL 6-24 32 Calcium 9.7 mg/dL 8.7-10.2 32 Chloride 111 mmol/L 101-111 32 Co2 (Carbon Dioxide) 28.0 mmol/L 22-32 32 Globulin 2.4 GM/DL 2-4 32 Glucose 100 mg/dL 70-105 32 Potassium 4.7 mmol/L 3.5-5.0 32 Sodium 143 mmol/L 135-145 32 Bilirubin Total 0.4 mg/dL 0.4-1.5 32 Total Protein 6.5 GM/DL 6.2-8.1 32 BUN/Creatinine Ratio 16.4 8-20 32 Creatinine 1.1 mg/dL 0.5-1.4 32 Lipid Profile 02/07/2007 Cholesterol/HDL Ratio 6.03 AVERAGE High 1-4.97 32 (Trig/Chol/HDL) Cholesterol 211 mg/dL High Less Than 200 32, 101 Triglyceride 129 mg/dL 40-200 32 High Density Lipoprotein 35 mg/dL Low 40-60 32, 102 Low Density Lipoprotein 150 mg/dL High Less Than 100 32, 103 CBC With Electronic Diff 02/07/2007 White Blood Count 5.0 CUMM 4.8-10.8 32 Abs Basophils 0 0-0.2 32 Abs Eosinophils 0.1 0-0.6 32 Absolute Neutrophil Count 2.4 1.5-7.7 32 Abs Lymphs 2.0 1.0-4.8 32 Abs Mononuclear 0.5 0-0.8 32 Basophil % 0.5 % 0-2 32 Hematocrit 44 % 42-52 32 Hemoglobin 14.8 g/dL 14.0-18.0 32 Eosinophil % 1.3 % 0-6 32 Gran % 47.6 % 38-83 32 Lymph % 40.3 % 20-45 32 Mean Corpuscular HGB Cone 34 g/dL 32-36 32 Mean Corpuscular Hemoglob 30 pg 27-31 32 Mean Corpuscular Volume 90 um3 80-94 32 Mean Platelet Volume 7.8 um3 7.4-10.4 32 Mononuclear % 10.3 % High 1-9 32 Platelet Count 211 CUMM 150-450 32 Red Cell Count 4.92 CUMM 4.6-6.2 32 Redcell Distribution WDTH 14 % 10.5-15 32 Laboratory test finding 02/07/2007 PSA Screening 0.46 NG/ML 0-4 32, 104 TSH 2.00 MIU/ML 0.34-5.60 32 Free Thyroxine 0.84 NG/ML 0.61-1.24 32, 105 CBC With Electronic Diff 03/08/2006 White Blood Count 4.9 CUMM 4.8-10.8 32 Abs Basophils 0 0-0.2 32 Abs Eosinophils 0.1 0-0.6 32 Absolute Neutrophil Count 2.1 1.5-7.7 32 Abs Lymphs 2.1 1.0-4.8 32 Abs Mononuclear 0.6 0-0.8 32 Basophil % 0 % 0-2 32 Hematocrit 44 % 42-52 32 Hemoglobin 15.0 g/dL 14.0-18.0 32 Eosinophil % 2.0 % 0-6 32 Gran % 43.3 % 38-83 32 Lymph % 42.6 % 20-45 32 Mean Corpuscular HGB Cone 34 g/dL 32-36 32 Mean Corpuscular Hemoglob 32 pg High 27-31 32 Mean Corpuscular Volume 92 um3 80-94 32 Mean Platelet Volume 8.2 um3 7.4-10.4 32 Mononuclear % 12.1 % High 1-9 32 Platelet Count 233 CUMM 150-450 32 Red Cell Count 4.75 CUMM 4.6-6.2 32 Redcell Distribution WDTH 13 % 10.5-15 32 Laboratory test finding 03/08/2006 PSA Screening 0.63 NG/ML 0.01-4.0 32 Lipid Profile 03/08/2006 Cholesterol/HDL Ratio 5.26 AVERAGE High 1-4.97 32 (Trig/Chol/HDL) Cholesterol 205 mg/dL High Less Than 200 32, 106 Triglyceride 91 mg/dL 40-200 32 High Density Lipoprotein 39 mg/dL Low 40-60 32, 107 Low Density Lipoprotein 148 mg/dL High Less Than 100 32, 108 Laboratory test finding 03/08/2006 Ferritin 68 NG/ML 24-336 32 C Reactive Protein < 0.5 mg/dL Less Than 0.5 32 C Reactive Protein High Sensit 0.2 mg/L < 7.48 32, 109 Urine DIP 03/03/2006 Leukocytes NEG Neg Urine Nitrites NEG Neg Urine pH 5 5-6 Total Protein, Urine NEG Neg Urine Glucose NORM Norm Urine Ketones NEG Neg Urobilinogen NORM Norm Urine Bilirubin NEG Neg Urine Blood NEG' Neg Specific [place] N/A Low 1.01-1.02 PT With Inr 12/22/2004 Prothrombin Time 14.8 International Normalized Ratio 1.39 Urine DIP 12/19/2004 Leukocytes NEG Neg Urine Nitrites NEG Neg Urine pH 5 5-6 Total Protein, Urine NEG Neg Urine Glucose NORM Norm Urine Ketones NEG Neg Urobolinogen NORM Norm Urine Bilirubin NEG Neg Urine Blood NEG Neg Specific [place] NA Low 1.01-1.02 Lipid Panel 12/12/2004 Cholesterol, Total 201 High Cholesterol/HDL Ratio 5.91 High HDL 34 Low Low Density Lipoprotein 125 High Triglycerides 209 High Laboratory test finding 12/12/2004 PSA - Prostate Specific Antige 0.6 Urine DIP 12/10/2003 Leukocytes NEG Neg Urine Nitrites NEG Neg Urine pH 5 5-6 Total Protein, Urine NL Neg Urine Glucose NL Norm Urine Ketones NL Neg Urobolinogen NL Norm Urine Bilirubin NL Neg Urine Blood NL Neg Specific [place] N/A Low 1.01-1.02 Lipid Profile 01/18/2002 Cholesterol/HDL Ratio 5.47 AVERAGE High 1-4.97 (Trig/Chol/HDL) Cholesterol 208 mg/dL High Less Than 200 110 Triglyceride 141 mg/dL 40-200 High Density Lipoprotein 38 mg/dL Low 40-60 111 Low Density Lipoprotein 142 mg/dL High Less Than 100 112 Laboratory test finding 01/18/2002 PSA Screening 0.5 NG/ML 0-4 113 Urine DIP 01/18/2002 Leukocytes NEG Neg Urine Nitrites NEG Neg Urine pH 5 5-6 Total Protein, Urine NL Neg Urine Glucose NL Norm Urine Ketones NL Neg Urobolinogen NL Norm Urine Bilirubin NL Neg Urine Blood NL Neg Specific [place] N/A Low 1.01-1.02 Laboratory test finding 09/24/2000 PSA 0.6 ng/ml 0 - 4 114 Comprehensive Metabolic 09/24/2000 Glucose 88 mg/dL 61.0 - 113.0 BUN 15 mg/dL 5.0 - 21.0 Creatinine, Serum 1.0 mg/dL 0.6 - 1.5 Sodium 144 mmol/L 135.0 - 146.0 Potassium 4.4 mmol/L 3.6 - 5.0 Chloride 103 mmol/L 98.0 - 108.0 Carbon Dioxide 27 mmol/L 23.0 - 33.0 Albumin 3.9 g/dL 3.8 - 4.6 Protein, Total 7.0 g/dL 6.2 - 8.0 Calcium 8.9 mg/dL 8.7 - 10.3 Alkaline Phosphatase 75 U/L 45.0 - 120.0 Sgot (Ast) 23 U/L 9.0 - 43.0 SGPT (Alt) 36 U/L 11.0 - 51.0 Bilirubin, Total 0.50 mg/dL 0.2 - 1.3 Lipid Profile 09/24/2000 Triglycerides 175 mg/dL 23.0 - 253.0 Cholesterol, Total 203 mg/dL High 120.0 - 200.0 115 HDL Cholesterol 38 mg/dL 35.0 - 9999.0 LDL Cholesterol 130 mg/dL 116 LDL/HDL Cholesterol 3.4 117 Chol/HDL Cholesterol 5.3 118 CBC 09/24/2000 WBC 5.4 x10^3 4.3 - 10.9 RBC 4.50 x10^6 4.2 - 5.6 Hemoglobin 14.2 g/dL 13.0 - 17.0 Hematocrit 41.9 % 39.0 - 50.0 MCV 93.2 fl 82.0 - 98.0 MCH 31.7 pg 27.5 - 33.5 MCHC 34.0 g/dL 32.0 - 36.0 RDW 13.4 % 11.5 - 14.5 Platelet Count 238 x10^3 130.0 - 400.0 MPV 7.4 fl 6.5 - 10.5 Segmented Neutrophils 46.6 % 44.0 - 74.0 Band 0.0 % 0.0 - 4.0 Lymphocytes 41.6 % 15.0 - 45.0 Monocytes 10.5 % 2.0 - 13.0 Eosinophils 0.9 % 0.0 - 6.0 Basophils 0.4 % 0.0 - 2.0 Neutrophil Absolute 2.5 x10^3 1.4 - 7.0 Lymphocytes Absolute 2.2 x10^3 1.0 - 3.4 Monocyte Absolute 0.6 x10^3 0.2 - 1.0 Eosinophil Absolute 0.0 x10^3 0.0 - 0.5 Basophil Absolute 0.0 x10^3 0.0 - 0.2 1 Because ethnic data is not always readily available, this report includes an eGFR for both -Americans and non- Americans. The National Kidney Disease Education Program (NKDEP) does not endorse the use of the MDRD equation for patients that are not between the ages of 18 and 70, are , have extremes of body size, muscle mass, or nutritional status, or are non- or non-. According to the National Kidney Foundation, irrespective of diagnosis, the stage of the disease is based on the level of kidney function: Stage Description GFR(mL/min/1.73 m(2)) 1 Kidney damage with normal or decreased GFR 90 2 Kidney damage with mild decrease in GFR 60-89 3 Moderate decrease in GFR 30-59 4 Severe decrease in GFR 15-29 5 Kidney failure <15 (or dialysis) 2 Therapeutic target for the treatment of diabetes mellitus patients is <7% HBA1C, and in selective patients <6.0%. Please refer to [place] [employer] diabetic care guidelines for further information. 3 Desirable: <150 Borderline High: 150-199 High: 200-499 Very High: >500 4 Desirable: <200 Borderline High: 200-239 High: >239 5 Low: <40 Desirable: 40-60 High: >60 6 Desirable: <100 Near Optimal: 100-129 Borderline High: 130-159 High: 160-189 Very High: >189 7 Because ethnic data is not always readily available, this report includes an eGFR for both -Americans and non- Americans. The National Kidney Disease Education Program (NKDEP) does not endorse the use of the MDRD equation for patients that are not between the ages of 18 and 70, are , have extremes of body size, muscle mass, or nutritional status, or are non- or non-. According to the National Kidney Foundation, irrespective of diagnosis, the stage of the disease is based on the level of kidney function: Stage Description GFR(mL/min/1.73 m(2)) 1 Kidney damage with normal or decreased GFR 90 2 Kidney damage with mild decrease in GFR 60-89 3 Moderate decrease in GFR 30-59 4 Severe decrease in GFR 15-29 5 Kidney failure <15 (or dialysis) 8 Desirable <150 Borderline high 150-199 High 200-499 Very High >500 9 Desirable <200 Borderline high 200-239 High >239 10 Low <40 Desirable: 40-60 High: >60 11 Desirable: <100 mg/dL Near Optimal: 100-129 mg/dL Borderline High: 130-159 mg/dL High: 160-189 mg/dL Very High: >189 mg/dL 12 Serum levels of PSA measured using the [employer] DXI Hybritech immunoassay should not be interpreted as absolute evidence of the presence or absence of disease. The PSA value should be used in conjunction with other pertinent clinical diagnostic procedures. A PSA value in the range of 0.1 to 0.6 ng/ml is indeterminate if being used as an indicator of recurrent or residual disease. The values obtained with different assay methods or kits cannot be used interchangeably. 13 Therapeutic target for the treatment of diabetes Mellitus patients is <7% HBA1C, and in selective patients <6.0%.Please refer to [place] [employer] Diabetic care guidelines for further information. 14 Desirable <150 Borderline high 150-199 High 200-499 Very High >500 15 Desirable <200 Borderline high 200-239 High >239 16 Low <40 Desirable: 40-60 High: >60 17 Desirable: <100 mg/dL Near Optimal: 100-129 mg/dL Borderline High: 130-159 mg/dL High: 160-189 mg/dL Very High: >189 mg/dL 18 Because ethnic data is not always readily available, this report includes an eGFR for both -Americans and non- Americans. The National Kidney Disease Education Program (NKDEP) does not endorse the use of the MDRD equation for patients that are not between the ages of 18 and 70, are , have extremes of body size, muscle mass, or nutritional status, or are non- or non-. According to the National Kidney Foundation, irrespective of diagnosis, the stage of the disease is based on the level of kidney function: Stage Description GFR(mL/min/1.73 m(2)) 1 Kidney damage with normal or decreased GFR 90 2 Kidney damage with mild decrease in GFR 60-89 3 Moderate decrease in GFR 30-59 4 Severe decrease in GFR 15-29 5 Kidney failure <15 (or dialysis) 19 Because ethnic data is not always readily available, this report includes an eGFR for both -Americans and non- Americans. The National Kidney Disease Education Program (NKDEP) does not endorse the use of the MDRD equation for patients that are not between the ages of 18 and 70, are , have extremes of body size, muscle mass, or nutritional status, or are non- or non-. According to the National Kidney Foundation, irrespective of diagnosis, the stage of the disease is based on the level of kidney function: Stage Description GFR(mL/min/1.73 m(2)) 1 Kidney damage with normal or decreased GFR 90 2 Kidney damage with mild decrease in GFR 60-89 3 Moderate decrease in GFR 30-59 4 Severe decrease in GFR 15-29 5 Kidney failure <15 (or dialysis) 20 Test Performed by: [place] [address] I&C Technician: Lucien Felipe II, M.D., Ph.D. 21 Therapeutic target for the treatment of diabetes Mellitus patients is <7% HBA1C, and in selective patients <6.0%.Please refer to [place] [employer] Diabetic care guidelines for further information. 22 Desirable <200 Borderline high 200-239 High >239 23 Low <40 Desirable: 40-60 High: >60 24 Desirable <150 Borderline high 150-199 High 200-499 Very High >500 25 Desirable: <100 mg/dL Near Optimal: 100-129 mg/dL Borderline High: 130-159 mg/dL High: 160-189 mg/dL Very High: >189 mg/dL 26 NON-FASTING 27 Desirable <150 Borderline high 150-199 High 200-499 Very High >500 28 Desirable <200 Borderline high 200-239 High >239 29 Low <40 Desirable: 40-60 High: >60 30 Desirable: <100 mg/dL Near Optimal: 100-129 mg/dL Borderline High: 130-159 mg/dL High: 160-189 mg/dL Very High: >189 mg/dL 31 Because ethnic data is not always readily available, this report includes an eGFR for both -Americans and non- Americans. The National Kidney Disease Education Program (NKDEP) does not endorse the use of the MDRD equation for patients that are not between the ages of 18 and 70, are , have extremes of body size, muscle mass, or nutritional status, or are non- or non-. According to the National Kidney Foundation, irrespective of diagnosis, the stage of the disease is based on the level of kidney function: Stage Description GFR(mL/min/1.73 m(2)) 1 Kidney damage with normal or decreased GFR 90 2 Kidney damage with mild decrease in GFR 60-89 3 Moderate decrease in GFR 30-59 4 Severe decrease in GFR 15-29 5 Kidney failure <15 (or dialysis) 32 FASTING 33 Desirable <150 Borderline high 150-199 High 200-499 Very High >500 34 Desirable <200 Borderline high 200-239 High >239 35 Low <40 Desirable: 40-60 High: >60 36 Desirable: <100 mg/dL Near Optimal: 100-129 mg/dL Borderline High: 130-159 mg/dL High: 160-189 mg/dL Very High: >189 mg/dL 37 Because ethnic data is not always readily available, this report includes an eGFR for both -Americans and non- Americans. The National Kidney Disease Education Program (NKDEP) does not endorse the use of the MDRD equation for patients that are not between the ages of 18 and 70, are , have extremes of body size, muscle mass, or nutritional status, or are non- or non-. According to the National Kidney Foundation, irrespective of diagnosis, the stage of the disease is based on the level of kidney function: Stage Description GFR(mL/min/1.73 m(2)) 1 Kidney damage with normal or decreased GFR 90 2 Kidney damage with mild decrease in GFR 60-89 3 Moderate decrease in GFR 30-59 4 Severe decrease in GFR 15-29 5 Kidney failure <15 (or dialysis) 38 FASTING 39 FASTING 40 Desirable <150 Borderline high 150-199 High 200-499 Very High >500 41 Desirable <200 Borderline high 200-239 High >239 42 Low <40 Desirable: 40-60 High: >60 43 Desirable <100 Near Optimal 100-129 Borderline high 130-159 High 160-189 Very High >189 44 Because ethnic data is not always readily available, this report includes an eGFR for both -Americans and non- Americans. The National Kidney Disease Education Program (NKDEP) does not endorse the use of the MDRD equation for patients that are not between the ages of 18 and 70, are , have extremes of body size, muscle mass, or nutritional status, or are non- or non-. According to the National Kidney Foundation, irrespective of diagnosis, the stage of the disease is based on the level of kidney function: Stage Description GFR(mL/min/1.73 m(2)) 1 Kidney damage with normal or decreased GFR 90 2 Kidney damage with mild decrease in GFR 60-89 3 Moderate decrease in GFR 30-59 4 Severe decrease in GFR 15-29 5 Kidney failure <15 (or dialysis) 45 HDL Interpretation: Undesirable: High Risk: Less than 40 mg/dL Desirable: Low Risk: Greater than 60 mg/dL 46 LDL Interpretation: Low Risk Optimal Level: LDL Less than 100 mg/dL Near or Above Optimal: LDL 100-129 mg/dL Borderline High Risk: LDL 130-159 mg/dL High Risk: LDL 160-189 mg/dL Very High Risk: LDL Greater than 189 mg/dL 47 Serum levels of PSA measured using the Favian K[employer] DXI Hybritech immunoassay should not be interpreted as absolute evidence of the presence or absence of disease. The PSA value should be used in conjunction with other pertinent clinical diagnostic procedures. The values obtained with different assay methods or kits cannot be used interchangeably. 48 Because ethnic data is not always readily available, this report includes an eGFR for both -Americans and non- Americans. The National Kidney Disease Education Program (NKDEP) does not endorse the use of the MDRD equation for patients that are not between the ages of 18 and 70, are , have extremes of body size, muscle mass, or nutritional status, or are non- or non-. According to the National Kidney Foundation, irrespective of diagnosis, the stage of the disease is based on the level of kidney function: Stage Description GFR(mL/min/1.73 m(2)) 1 Kidney damage with normal or decreased GFR 90 2 Kidney damage with mild decrease in GFR 60-89 3 Moderate decrease in GFR 30-59 4 Severe decrease in GFR 15-29 5 Kidney failure <15 (or dialysis) 49 Because ethnic data is not always readily available, this report includes an eGFR for both -Americans and non- Americans. The National Kidney Disease Education Program (NKDEP) does not endorse the use of the MDRD equation for patients that are not between the ages of 18 and 70, are , have extremes of body size, muscle mass, or nutritional status, or are non- or non-. According to the National Kidney Foundation, irrespective of diagnosis, the stage of the disease is based on the level of kidney function: Stage Description GFR(mL/min/1.73 m(2)) 1 Kidney damage with normal or decreased GFR 90 2 Kidney damage with mild decrease in GFR 60-89 3 Moderate decrease in GFR 30-59 4 Severe decrease in GFR 15-29 5 Kidney failure <15 (or dialysis) 50 Test Performed by: [place] [address] I&C Technician: Jose C Aleman III, M.D. R 51 Test Performed by: [place] [address] I&C Technician: Oumou Wooten, Ph.D. R 52 Test Performed by: [place] [address] I&C Technician: Jose C Aleman III, M.D. R 53 Shelton Fang 54 Serum levels of PSA measured using the Favian Bono DXI Hybritech immunoassay should not be interpreted as absolute evidence of the presence or absence of disease. The PSA value should be used in conjunction with other pertinent clinical diagnostic procedures. A PSA value in the range of 0.1 to 0.6 ng/ml is indeterminate if being used as an indicator of recurrent or residual disease. The values obtained with different assay methods or kits cannot be used interchangeably. 55 CHOLESTEROL INTERPRETATION: Desirable: Less than 200 MG/DL Borderline-High Risk: 200-239 MG/DL High-Risk: 240 MG/DL and over 56 HDL INTERPRETATION: Undesirable: High Risk: Less than 40 MG/DL Desirable: Low Risk: Greater than 60 MG/DL 57 LDL INTERPRETATION: Low Risk Optimal Level: LDL Less than 100 MG/DL Near or Above Optimal: LDL 100-129 MG/DL Borderline High Risk: LDL 130-159 MG/DL High Risk: LDL 160-189 MG/DL Very High Risk: LDL Greater than 189 MG/DL 58 Anion gap measurement may be of limited value in the presence of any alkalosis, especially in a combined acid base disorder. . 59 Because ethnic data is not always readily available, this report includes an eGFR for both -Americans and non- Americans. The National Kidney Disease Education Program (NKDEP) does not endorse the use of the MDRD equation for patients that are not between the ages of 18 and 70, are , have extremes of body size, muscle mass, or nutritional status, or are non- or non-. According to the National Kidney Foundation, irrespective of diagnosis, the stage of the disease is based on the level of kidney function: Stage Description GFR(mL/min/1.73 m(2)) 1 Kidney damage with normal or decreased GFR 90 2 Kidney damage with mild decrease in GFR 60-89 3 Moderate decrease in GFR 30-59 4 Severe decrease in GFR 15-29 5 Kidney failure <15 (or dialysis) 60 CHOLESTEROL INTERPRETATION: Desirable: Less than 200 MG/DL Borderline-High Risk: 200-239 MG/DL High-Risk: 240 MG/DL and over 61 HDL INTERPRETATION: Undesirable: High Risk: Less than 40 MG/DL Desirable: Low Risk: Greater than 60 MG/DL 62 LDL INTERPRETATION: Low Risk Optimal Level: LDL Less than 100 MG/DL Near or Above Optimal: LDL 100-129 MG/DL Borderline High Risk: LDL 130-159 MG/DL High Risk: LDL 160-189 MG/DL Very High Risk: LDL Greater than 189 MG/DL 63 Anion gap measurement may be of limited value in the presence of any alkalosis, especially in a combined acid base disorder. . 64 Because ethnic data is not always readily available, this report includes an eGFR for both -Americans and non- Americans. The National Kidney Disease Education Program (NKDEP) does not endorse the use of the MDRD equation for patients that are not between the ages of 18 and 70, are , have extremes of body size, muscle mass, or nutritional status, or are non- or non-. According to the National Kidney Foundation, irrespective of diagnosis, the stage of the disease is based on the level of kidney function: Stage Description GFR(mL/min/1.73 m(2)) 1 Kidney damage with normal or decreased GFR 90 2 Kidney damage with mild decrease in GFR 60-89 3 Moderate decrease in GFR 30-59 4 Severe decrease in GFR 15-29 5 Kidney failure <15 (or dialysis) 65 CHOLESTEROL INTERPRETATION: Desirable: Less than 200 MG/DL Borderline-High Risk: 200-239 MG/DL High-Risk: 240 MG/DL and over 66 HDL INTERPRETATION: Undesirable: High Risk: Less than 40 MG/DL Desirable: Low Risk: Greater than 60 MG/DL 67 LDL INTERPRETATION: Low Risk Optimal Level: LDL Less than 100 MG/DL Near or Above Optimal: LDL 100-129 MG/DL Borderline High Risk: LDL 130-159 MG/DL High Risk: LDL 160-189 MG/DL Very High Risk: LDL Greater than 189 MG/DL 68 * SERUM LEVELS OF PSA MEASURED USING THE FAVIAN CommonBond ACCESS HYBRITECH IMMUNOASSAY SHOULD NOT BE INTERPRETED ABSOLUTE EVIDENCE OF THE PRESENCE OR ABSENCE OF DISEASE. THE PSA VALUE SHOULD BE USED IN CONJUNCTION WITH OTHER PERTINENT CLINICAL DIAGNOSTIC PROCEDURES. A PSA value in the range of 0.1 to 0.6 ng/ml is indeterminate if being used as an indicator of recurrent or residual disease. . 69 Anion gap measurement may be of limited value in the presence of any alkalosis, especially in a combined acid base disorder. . 70 A metabolite of Naproxen, O-desmethylnaproxen, has been shown to interfere with the [place] method for measuring total bilirubin. Samples from patients who have taken Naproxen have shown spurious elevation in total bilirubin levels. 71 Because ethnic data is not always readily available, this report includes an eGFR for both -Americans and non- Americans. The National Kidney Disease Education Program (NKDEP) does not endorse the use of the MDRD equation for patients that are not between the ages of 18 and 70, are , have extremes of body size, muscle mass, or nutritional status, or are non- or non-. According to the National Kidney Foundation, irrespective of diagnosis, the stage of the disease is based on the level of kidney function: Stage Description GFR(mL/min/1.73 m(2)) 1 Kidney damage with normal or decreased GFR 90 2 Kidney damage with mild decrease in GFR 60-89 3 Moderate decrease in GFR 30-59 4 Severe decrease in GFR 15-29 5 Kidney failure <15 (or dialysis) 72 CHOLESTEROL INTERPRETATION: Desirable: Less than 200 MG/DL Borderline-High Risk: 200-239 MG/DL High-Risk: 240 MG/DL and over 73 HDL INTERPRETATION: Undesirable: High Risk: Less than 40 MG/DL Desirable: Low Risk: Greater than 60 MG/DL 74 LDL INTERPRETATION: Low Risk Optimal Level: LDL Less than 100 MG/DL Near or Above Optimal: LDL 100-129 MG/DL Borderline High Risk: LDL 130-159 MG/DL High Risk: LDL 160-189 MG/DL Very High Risk: LDL Greater than 189 MG/DL 75 * SERUM LEVELS OF PSA MEASURED USING THE miLibris ACCESS HYBRITECH IMMUNOASSAY SHOULD NOT BE INTERPRETED ABSOLUTE EVIDENCE OF THE PRESENCE OR ABSENCE OF DISEASE. THE PSA VALUE SHOULD BE USED IN CONJUNCTION WITH OTHER PERTINENT CLINICAL DIAGNOSTIC PROCEDURES. A PSA value in the range of 0.1 to 0.6 ng/ml is indeterminate if being used as an indicator of recurrent or residual disease. . 76 * SERUM LEVELS OF PSA MEASURED USING THE FAVIAN CommonBond ACCESS HYBRITECH IMMUNOASSAY SHOULD NOT BE INTERPRETED ABSOLUTE EVIDENCE OF THE PRESENCE OR ABSENCE OF DISEASE. THE PSA VALUE SHOULD BE USED IN CONJUNCTION WITH OTHER PERTINENT CLINICAL DIAGNOSTIC PROCEDURES. A PSA value in the range of 0.1 to 0.6 ng/ml is indeterminate if being used as an indicator of recurrent or residual disease. . 77 ---- RUN DATE: 08/01/09 [facility] NMI LIVE PAGE 1 RUN TIME: 1520 Specimen Inquiry RUN USER: INTERFACE -- Name: CHAPIN BOJORQUEZ III Status: REG REF Re07/30/09 Age/Sex: 63/M Unit#: [id number] Location: [facility]. : 44 -- Specimen: [id number] BRENDA Spec Date: 07/30/[address]: Mil Peng i, MD Spec Type: SURGICAL P Received: 07/31/09-806 Copies to: Sabina rosales MD SPECIMEN 1) LEFT LOBE PROSTATE BIOPSY APEX (APEX 3) 2) LEFT LOBE PROSTATE BIOPSY BASE (BASE 3) 3) RIGHT LOBE PROSTATE BIOPSY APEX (APEX 3) 4) RIGHT LOBE PROSTATE BIOPSY BASE (BASE 3) HISTORY PRE-OP DIAGNOSIS: Small focus prostate cancer right lobe, on surveillance , PSA 0.72 CLINICAL INFORMATION: Biopsy 07/09 - small focus [place] prostate cance r right base GROSS DESCRIPTION 1) The specimen is received in formalin labelled Chapin Bojorquez III, Left Prostate Lobe [place] and consists of three, shabazz, soft tissue cores measuring 1.8 cm., 1.7 cm., and 1.3 x 0.1 cm. Submitted entirely, one cassette. 2) The specimen is received in formalin labelled Chapin Bojorquez III, Left Prostate Lobe Base and consists of three, shabazz, soft tissue cores measuring 1.1 cm., 1.2 cm., and 1.4 x 0.1 cm. Submitted entirely, one cassette. 3) The specimen is received in formalin labelled Chapin Bojorquez III, Right Prostate Lobe [place] and consists of three, shabazz, soft tissue cores measuring 2.0 cm., 1.5 cm., and 1.4 x 0.1 cm. Submitted entirely, one cassette. 4) The specimen is received in formalin labelled Chapin Bojorquez III, Right Prostate Lobe Base and consists of three, shabazz, soft tissue cores measuring 1.8 cm., 1.7 cm., and 1.7 x 0.1 cm. Submitted entirely, one cassette. DIAGNOSIS 1) Prostate, left apex, core biopsies: A. Focal high grade prostatic intraepithelial neoplasia. B. Partial atrophy with acute and chronic inflammation and reactive glandular changes. C. Single focus of granulomatous inflammation with giant cells. D. No evidence of neoplasia identified. 2) Prostate, left base, core biopsies: -- DEPARTMENT OF PATHOLOGY, [address] [place] [address] [facility] Permit #[id number] Reba Alonzo M.D. Test Engine Operator Dir liang -- -- RUN DATE: 08/01/09 [facility] NMI LIVE PAGE 2 RUN TIME: 1520 Specimen Inquiry RUN USER: INTERFACE -- Name: CHAPIN BOJORQUEZ III Status: REG REF Re07/30/09 Age/Sex: 63/M Unit#: [id number] Location: [facility] : 44 -- -- CONTINUED -- DIAGNOSIS (Continued) A. Focal high grade prostatic intraepithelial neoplasia. B. Prostate tissue with partial atrophy and chronic inflammation. C. No evidence of malignancy identified. 3) Prostate, right apex, core biopsies: A. Focal high grade prostatic intraepithelial neoplasia. B. Partial atrophy with acute and chronic inflammation and reactive glandular changes. C. Single focus of granulomatous inflammation with giant cells. D. No evidence of neoplasia identified. 4) Prostate, right base, core biopsies: A. Focal high grade prostatic intraepithelial neoplasia. B. Prostate tissue with partial atrophy and chronic inflammation. C. No evidence of malignancy identified. COMMENT The inflammatory changes in the apices bilaterally are most likely residual prior biopsy site related changes. Signed Electronically by: SHELTON FANG MD 08/01/09 1520 -- -- DEPARTMENT OF PATHOLOGY, [address] [place] [address] [facility] Permit #[id number] Shelton Fang M.D. Director Fidencio Valderrama M.D. Test Engine Operator Dir garth -- 78 Greater than or equal to 211 is normal. . 79 Recent studies consider the lower limit of 32.0 ng/mL to be a threshold for optimal health. Rickie DIAZ. J Nutr. 2005 Jun;135(2):317-22. 80 CHOLESTEROL INTERPRETATION: Desirable: Less than 200 MG/DL Borderline-High Risk: 200-239 MG/DL High-Risk: 240 MG/DL and over 81 HDL INTERPRETATION: Undesirable: High Risk: Less than 40 MG/DL Desirable: Low Risk: Greater than 60 MG/DL 82 LDL INTERPRETATION: Low Risk Optimal Level: LDL Less than 100 MG/DL Near or Above Optimal: LDL 100-129 MG/DL Borderline High Risk: LDL 130-159 MG/DL High Risk: LDL 160-189 MG/DL Very High Risk: LDL Greater than 189 MG/DL 83 Anion gap measurement may be of limited value in the presence of any alkalosis, especially in a combined acid base disorder. . 84 Note change in reference range as of 12/22/07. The change was based on recommendations from the [place] [employer]. 85 Please note change in reference range effective 07 . 86 A metabolite of Naproxen, O-desmethylnaproxen, has been shown to interfere with the Jendrassik-Luis method for measuring total bilirubin. Samples from patients who have taken Naproxen have shown spurious elevation in total bilirubin levels. 87 Because ethnic data is not always readily available, this report includes an eGFR for both -Americans and non- Americans. The National Kidney Disease Education Program (NKDEP) does not endorse the use of the MDRD equation for patients that are not between the ages of 18 and 70, are , have extremes of body size, muscle mass, or nutritional status, or are non- or non-. According to the National Kidney Foundation, irrespective of diagnosis, the stage of the disease is based on the level of kidney function: Stage Description GFR(mL/min/1.73 m(2)) 1 Kidney damage with normal or decreased GFR 90 2 Kidney damage with mild decrease in GFR 60-89 3 Moderate decrease in GFR 30-59 4 Severe decrease in GFR 15-29 5 Kidney failure <15 (or dialysis) 88 * SERUM LEVELS OF PSA MEASURED USING THE FAVIAN CommonBond ACCESS HYBRITECH IMMUNOASSAY SHOULD NOT BE INTERPRETED ABSOLUTE EVIDENCE OF THE PRESENCE OR ABSENCE OF DISEASE. THE PSA VALUE SHOULD BE USED IN CONJUNCTION WITH OTHER PERTINENT CLINICAL DIAGNOSTIC PROCEDURES. 89 The philosophy instructor and regulatory agencies both recommend that a throat culture for beta strep be performed if a Rapid Group A Strep assay yields a negative result. Therefore a culture will be automatically performed on all negative samples. N^NEGATIVE FOR GROUP A STREP BY ENZYME IMMUNOASSAY^STREPA 90 NEGATIVE FOR GROUP A BETA STREPTOCOCCUS 91 ---- RUN DATE: 07/17/08 [facility] NMI LIVE PAGE 1 RUN TIME: 1541 Specimen Inquiry RUN USER: INTERFACE -- Name: CHAPIN BOJORQUEZ Status: REG REF Re07/12/08 Age/Sex: 62/M Unit#: [id number] Location: [facility] : 44 -- Specimen: [id number] [facility] Spec Date: 07/12/[address] [facility] [address]: Mil Peng i, MD Spec Type: SURGICAL P Received: 07/13/08-1322 Copies to: Cheikh Riley MD SPECIMEN 1) LEFT LOBE PROSTATE BIOPSY APEX (APEX 3) 2) LEFT LOBE PROSTATE BIOPSY BASE (BASE 3) 3) RIGHT LOBE PROSTATE BIOPSY APEX (APEX 3) 4) RIGHT LOBE PROSTATE BIOPSY BASE (BASE 3) HISTORY PRE-OP DIAGNOSIS: Grade III prostate right lobe CLINICAL INFORMATION: PSA 2.3 GROSS DESCRIPTION 1) The specimen is received in formalin labelled Chapin Bojorquez, Left Prostate Lobe [place], and consists of three, shabazz, soft tissue cores, each measuring 1.5 x 0.4 x 0.4 cm. Submitted entirely in one cassette labelled 1. 2) The specimen is received in formalin labelled Chapin Bojorquez, Left Prostate Lobe [place], and consists of three, shabazz, soft tissue cores, each measuring 1.5 x 0.4 x 0.4 cm. Submitted entirely in one cassette labelled 2. 3) The specimen is received in formalin labelled Chapin Bojorquez, Right Prostate Lobe [place], and consists of three, shabazz, soft tissue cores, each measuring 1.8 x 0.4 x 0.4 cm. Submitted entirely in one cassette labelled 3. 4) The specimen is received in formalin labelled Chapin Elias, Right Prostate Lobe Base, and consists of three, shabazz, soft tissue cores, each measuring 1.7 x 0.3 x 0.3 cm. Submitted entirely in one cassette labelled 4. DIAGNOSIS 1. Prostate, left apex, core biopsies: A. Benign prostate tissue with partial atrophy and chronic inflammation. B. No evidence of neoplasia identified. -- DEPARTMENT OF PATHOLOGY, [address] [place] [address] [facility] Permit #[id number] Reba Alonzo M.D. Test Engine Operator Dir garth -- -- RUN DATE: 07/17/08 [facility] NMI LIVE PAGE 2 RUN TIME: 8045 Specimen Inquiry RUN USER: INTERFACE -- Name: CHAPIN BOJORQUEZ Status: REG REF Re07/12/08 Age/Sex: 62/M Unit#: [id number] Location: [facility] : 44 -- -- CONTINUED -- DIAGNOSIS (Continued) 2. Prostate, left base, core biopsies: A. Benign prostate tissue. B. No evidence of neoplasia identified. 3. Prostate, right apex, core biopsies: A. Benign prostate tissue with partial atrophy and chronic inflammation. B. No evidence of neoplasia identified. 4. Prostate, right base, core biopsies: A. Prostatic adenocarcinoma, small acinar type. 1. Ruth score: 3 + 3=6. 2. Extent of Local Invasion: One minute focus on one of three cores, measuring less than 0.1 cm. in maximal scan and occupying less than 2% of total core length. 3. Perineural invasion: Not seen. 4. Angiolymphatic invasion: Not seen. B. Other findings: None. ADDENDUM Addendum #1 Entered: 07/17/089270 Dr. Valderrama has reviewed this case and concurs. Addendum Review (signature on file) SHELTON FANG MD 07/17/08 -- Signed Electronically by: SHELTON FANG MD 07/16/08 1438 -- -- DEPARTMENT OF PATHOLOGY, [address] [place] [address] [facility] Permit #[id number] Reba Alonzo M.D. Test Engine Operator Dir garth -- 92 Cholesterol Risk Levels (NIH) Recommended: under 200 mg/dl Borderline : 200-239 mg/dl High Risk : Above 240 mg/dl 93 The National Cholesterol Education Program recommends the following ranges for LDL Cholesterol: Optimal under 100 mg/dl Near or above Optimal 100 - 129 mg/dl Borderline High 130 - 159 mg/dl High 160 - 189 mg/dl Very High above 190 mg/dl 94 Triglyceride Risk Levels: Normal : <150 mg/dl Borderline : 150-199 mg/dl High : 200-499 mg/dl Very High : >500 mg/dl 95 LDL/HDL Risk Ratio Levels MALE FEMALE 1/2 X Average 1.00 1.47 Average 3.55 3.22 2 X Average 6.25 5.03 3 X Average 7.99 6.14 96 CHOL/HDL Risk Ratio Levels MALE FEMALE 1/2 X Average 3.4 3.3 Average 5.0 4.4 2 X Average 9.5 7.0 3 X Average 24.0 11.0 97 . Serum PSA results should be used only in conjunction with information available from the clinical evaluation of the patient and other diagnostic procedures. Values obtained with different assay methods or kits cannot be used interchangeably. Results obtained using Fitly ICMA methodology. 98 Greater than or equal to 211 is normal. . 99 mL/min/1.73m2 . Normal Function or Mild Renal Disease, if clinically at risk: >or=60 Moderately decreased: 30 - 59 Severely decreased: 15 - 29 Renal Failure: <15 . Please note that the MDRD equation requires an additional adjustment for -Americans (multiply the GFR result by 1.210). . Glomerular Filtration Rate (GFR) is estimated based on the MDRD equation, which assumes a steady state for creatinine (Jo Int Med 139/2 137-149, 2003), as recommended by the National Kidney Disease Education Program in conjunction with the National Institutes of Health and the National Kidney Foundation. . Clinical conditions in which it may be necessary to measure GFR by using clearance methods include extremes of age and body size, severe malnutrition or obesity, diseases of skeletal muscle, paraplegia or quadriplegia, vegetarian diet, rapidly changing kidney function, and calculation of the dose of potentially toxic drugs that are excreted by the kidneys. 100 Anion gap measurement may be of limited value in the presence of any alkalosis, especially in a combined acid base disorder. . 101 Classification: Borderline High . 102 Classification: Low . 103 CALCULATED LDL APPROXIMATES THE VALUE OF A DIRECT LDL MEASUREMENT. Classification: Borderline High . 104 * SERUM LEVELS OF PSA MEASURED USING THE miLibris ACCESS HYBRITECH IMMUNOASSAY SHOULD NOT BE INTERPRETED ABSOLUTE EVIDENCE OF THE PRESENCE OR ABSENCE OF DISEASE. THE PSA VALUE SHOULD BE USED IN CONJUNCTION WITH OTHER PERTINENT CLINICAL DIAGNOSTIC PROCEDURES. A PSA value in the range of 0.1 to 0.6 ng/ml is indeterminate if being used as an indicator of recurrent or residual disease. . 105 PLEASE NOTE NEW REFERENCE RANGES. 106 Classification: Borderline High . 107 Classification: Low . 108 CALCULATED LDL APPROXIMATES THE VALUE OF A DIRECT LDL MEASUREMENT. Classification: Borderline High . 109 Less Than 1.0......Low Risk of Cardiovascular Disease 1.0-3.0............Medium Risk (<2 Fold Increase) Greater Than 3.0...High Risk (Approximately 2-Fold Increase) The above guidelines are referenced in "Markers of Inflammation and Cardiovascular Disease: Application to Clinical and Public Health Practice." A Statement for Health Professionals from the Centers for Disease Control and Prevention and the [place] [employer]. (Reference: Circulation 2003 107:499-511) SERUM LEVELS OF HIGH SENSITIVITY C-REACTIVE PROTEIN MEASURED BY THE miLibris LXi 725 SYSTEM SHOULD NOT BE INTERPRETTED ABSOLUTE EVIDENCE OF THE PRESENCE OR ABSENCE OF DISEASE. A HIGH SENSITIVITY CRP VALUE SHOULD BE USED IN CONJUNCTION WITH OTHER PERTINENT CLINICAL AND DIAGNOSTIC INFORMATION. 110 Classification: Borderline High . 111 Classification: Low . 112 CALCULATED LDL APPROXIMATES THE VALUE OF A DIRECT LDL MEASUREMENT. Classification: Borderline High . 113 * SERUM LEVELS OF PSA MEASURED USING THE FAVIAN [employer] ACCESS HYBRITECH IMMUNOASSAY SHOULD NOT BE INTERPRETED ABSOLUTE EVIDENCE OF THE PRESENCE OR ABSENCE OF DISEASE. THE PSA VALUE SHOULD BE USED IN CONJUNCTION WITH OTHER PERTINENT CLINICAL DIAGNOSTIC PROCEDURES. A PSA value in the range of 0.1 to 0.6 ng/ml is indeterminate if being used as an indicator of recurrent or residual disease. . 114 . RESULTS OBTAINED USING XMS Penvision MEIA METHODOLOGY. SERUM PSA RESULTS SHOULD BE USED ONLY IN CONJUNCTION WITH INFORMATION AVAILABLE FROM THE CLINICAL EVALUATION OF THE PATIENT AND OTHER DIAGNOSTIC PROCEDURES. 115 Cholesterol Risk Levels (NIH) Recommended: under 200 mg/dl Borderline : 200-239 mg/dl High Risk : Above 240 mg/dl . 116 LDL Cholesterol Risk Levels (NIH) Recommended: under 130 mg/dl Borderline: 131 - 159 mg/dl High Risk: above 160 mg/dl . 117 LDL/HDL Risk Ratio Levels MALE FEMALE 1/2 X Average 1.00 1.47 Average 3.55 3.22 2 X Average 6.25 5.03 3 X Average 7.99 6.14 . 118 CHOL/HDL Risk Ratio Levels MALE FEMALE 1/2 X Average 3.4 3.3 Average 5.0 4.4 2 X Average 9.5 7.0 3 X Average 24.0 11.0 . Procedures Date CPT Code Description Status 12/19/2004 83444 EKG, at Least 12 Leads w/Interpretation and Report Completed 06/25/2003 67232 EKG, at Least 12 Leads w/Interpretation and Report Completed Encounters Type Date Location Provider CPT E/M Dx Office Visit 09/10/2017 9:30a [facility] Sabina Rodriguez M.D., G0439 Z00.00 R.Kin E78.00 D64.9 R73.01 Office Visit 05/10/2017 10:30a Main Office Sabina Rodriguez M.D., R.DLoli 26005 H18.51 Office Visit 04/12/2017 10:15a Main Office Sabina Rodriguez M.D., R.Kin 36054 R41.3 Office Visit 03/02/2017 11:30a Main Office Everardo Guerrerosher [place], [facility] 70230 H60.11 Office Visit 11/20/2016 10:00a Main Office Sabina Rodriguez M.D., R.DLoli 81510 H18.51 Office Visit 09/23/2016 2:15p Main Office Sabina Rodriguez M.D., R.D. G0439 Z00.00 E78.00 D64.9 R73.01 Z20.89 Office Visit 03/06/2016 10:15a Main Office Sabina Rodriguez M.D., R.Kin 41268 E78.00 E04.2 Office Visit 09/02/2015 1:45p Main Office Sabina Rodriguez M.D., R.D. G0439 Z00.00 R73.01 E78.0 D64.9 N42.89 Office Visit 12/20/2014 11:30a Main Office Sabina Rodriguez M.D., R.DLoli 13759 790.21 272.0 285.9 Office Visit 08/13/2014 9:30a Main Office Sabina Rodriguez M.D., R.DLoli G0439 V70.0 272.0 285.9 602.8 V03.82 Office Visit 07/04/2014 11:30a Main Office Sabina Rodriguez M.D., R.DLoli 94500 V65.40 272.0 246.9 285.9 602.8 Office Visit 05/10/2013 9:30a Main Office Sabina Rodriguez M.D., R.Kin G0438 V70.0 427.31 272.0 486 307.49 Office Visit 04/06/2013 12:15p Main Office Sabina Rodriguez M.D., R.DLoli 01473 486 V04.81 V03.82 Office Visit 03/20/2013 3:45p Main Office Sabina Rodriguez M.D., R.DLoli 89007 465.9 Office Visit 02/20/2013 11:00a Main Office Sabina Rodriguez M.D., R.DLoli 12746 486 Office Visit 01/24/2013 3:15p Main Office Misti Martinez M.D. 84765 786.52 246.9 789.02 Office Visit 11/08/2012 4:30p Main Office BLUE Schaefer-C 86221 354.0 Office Visit 11/07/2012 4:45p Main Office BLUE Schaefer-C 84136 911.4 Office Visit 03/03/2012 10:30a Main Office Sabina Rodriguez M.D., R.DLoli 59978 781.1 742.9 Office Visit 02/22/2012 2:00p Main Office Sabina Rodriguez M.D., R.DLoli 49313 781.1 Office Visit 11/16/2011 10:45a Main Office FERNANDO Jaramillo 07284 782.9 Office Visit 11/10/2011 11:00a Main Office FERNANDO Jaramillo 91953 782.9 Office Visit 09/10/2011 9:15a Main Office Sabina Rodriguez M.D., R.DLoli 82256 285.9 272.0 427.31 602.8 Office Visit 12/11/2010 3:45p Main Office Sabina Rodriguez M.D.Neeru 37821 285.9 Office Visit 06/26/2010 8:30a Main Office Sabina Rodriguez M.D., Ne[place]u 27388 V70.0 272.0 427.31 602.8 302.72 285.9 Office Visit 07/20/2009 11:30a Main Office Petrona Bernal M.D. 65494 388.30 Office Visit 06/24/2009 8:30a Main Office Sabina Rodriguez M.D., [place] 87771 427.31 V70.0 302.72 602.8 285.9 Office Visit 11/05/2008 3:15p Main Office Sabina Rodriguez M.D., [place] 23672 682.9 Office Visit 06/22/2008 8:45a Main Office Cheikh Riley M.D. 07887 600.10 427.31 709.9 719.42 V76.51 V70.0 Office Visit 12/23/2007 2:15p Main Office Casey Anna [facility] 51260 719.42 709.9 Office Visit 07/22/2007 11:15a Main Office Cheikh Riley M.D. 67088 719.81 427.31 Office Visit 03/11/2007 8:45a Main Office Cheikh Riley M.D. 65583 427.31 272.0 110.1 V70.0 443.9 V04.81 V06.8 Office Visit 03/03/2006 12:45p Main Office Cheikh Riley M.D. 25133 427.31 272.0 110.1 216.5 216.2 V76.9 V70.0 Office Visit 12/19/2004 8:45a Main Office Cheikh Riley M.D. 07677 427.31 302.72 272.0 V70.0 V76.9 Office Visit 11/10/2004 3:45p Main Office Cheikh Riley M.D. 14666 302.72 Office Visit 12/10/2003 1:30p Main Office Cheikh Riley M.D. 88116 V70.0 785.1 110.1 272.0 V76.9 Office Visit 06/25/2003 1:45p Main Office Cheikh Riley M.D. 38467 785.1 Office Visit 01/18/2002 1:45p Main Office Cheikh Riley M.D. 13413 V70.0 600.0 V76.9 Office Visit 10/08/2001 10:15a Main Office Maggy Cassidy.N.P.C. 30192 088.81 Plan of Care 09/10/2017 - Sabina Rodriguez M.D., R.D.Z00.00 Encntr for general adult medical exam w/o abnormal findingsRecommendations:The 5 Year Plan for your preventive health care is: Colonoscopy due 2020. Flu shot yearly. Annual exam at [facility]. Eye exam yearly. Regular dental care. Check your cholesterol and screen for diabetes yearly.E78.00 Pure hypercholesterolemia, psvdjralgvcZ70.9 Anemia, yocaemfatotT02.01 Impaired fasting glucose
--- NOTE | 2017-10-09 10:55 | UC ---
General HPI - HPI Summary HPI Summary: c/o tick bite found yesterday on right foot, comes to for removal, states he also has marking on same foot for the past week and he is not sure if it was a tick as well, inquiring about prophylaxis for Lyme's disease. Tick is not engorged - History of Current Complaint Chief Complaint: Piero Stated Complaint: TICK BITE Time Seen by Provider: 10/09/17 09:33 Hx Obtained From: Patient Onset/Duration: Sudden Onset, Lasting Hours Onset Severity: Mild Current Severity: Mild Pain Intensity: 0 - Allergy/Home Medications Allergies/Adverse Reactions: Allergies Allergy/AdvReac Type Severity Reaction Status Date / Time No Known Allergies Allergy Verified 10/09/17 09:30 PMH/Surg Hx/FS Hx/Imm Hx Previously Healthy: Yes - Surgical History Surgical History: Yes Surgery Procedure, Year, and Place: cardiac ablation, pyloric stenosis as a infant (1945) - Family History Known Family History: Positive: Other - mother - breast/lung CA, dementia - both parents - Social History Alcohol Use: Daily Alcohol Amount: 1-2 drinks daily Substance Use Type: None Smoking Status (MU): Never Smoked Tobacco Have You Smoked in the Last Year: No - Immunization History Vaccination Up to Date: Yes Review of Systems Constitutional: Negative All Other Systems Reviewed And Are Negative: Yes Physical Exam Triage Information Reviewed: Yes Appearance: Well-Appearing, No Pain Distress, Well-Nourished Vital Signs: Initial Vital Signs Temp 97.9 F 10/09/17 09:28 Pulse 76 10/09/17 09:28 Resp 15 10/09/17 09:28 BP 134/67 10/09/17 09:28 Pulse Ox 100 10/09/17 09:28 Vital Signs Reviewed: Yes Eyes: Positive: Conjunctiva Clear ENT: Positive: Hearing grossly normal Neck exam: Normal Respiratory: Positive: Chest non-tender, No respiratory distress Cardiovascular: Positive: Pulses Normal, Brisk Capillary Refill Abdomen Description: Positive: Nontender Skin Exam: Other - tick attached to dorsal aspect of right foot Course/Dx - Course Course Of Treatment: tick was removed successfully and entirely, tick was not engorged and prophylaxis for Lyme is not necessary at this time. Patient is very concerned about insect bite a week ago and was instructed to watch for erythema migrans and bull's eye appearance of rash for 10 days, in case it appears start doxycycline 200mg po once. - Differential Dx - Multi-Symptom Provider Diagnoses: tick bite Discharge - Sign-Out/Discharge Documenting (check all that apply): Discharge/Admit/Transfer - Discharge Plan Condition: Good Disposition: HOME Prescriptions: DOXYcycline CAP(*) [DOXYcycline 100MG CAP(*)] 200 mg PO DAILY #2 cap Patient Education Materials: Doxycycline (By mouth), Tick Bite (ED) Referrals: Sabina King MD [Primary Care Provider] - - Billing Disposition and Condition Condition: GOOD Disposition: Home
== END 2017-10-09 10:11 | disposition home or self-care (01) ==
LOC: UCEAST 09:16
DX: S90.861A Insect bite (nonvenomous), right foot, initial encounter (principal); W57.XXXA Bitten or stung by nonvenomous insect and other nonvenomous arthropods, initial encounter; Y93.9 Activity, unspecified; Y92.9 Unspecified place or not applicable
CPT/HCPCS: 99212; G0463

== ENCOUNTER 2018-11-08 09:51 | Emergency (ER) | payer MEDICARE, BC ==
[2018-11-08 09:59] VITALS: BP 141/58
--- NOTE | 2018-11-08 12:08 | UC ---
Skin Complaint HPI - HPI Summary HPI Summary: 72 y/o male presents to the urgent care c/o rash x 1.5 wks and is spreading - History of Current Complaint Chief Complaint: UCRash Time Seen by Provider: 11/08/18 11:44 Stated Complaint: RASH Hx Obtained From: Patient Onset/Duration: Gradual Onset, Lasting Weeks - 1.5 week ago doing cutting weeds , Still Present, Worse Since - 3 days Skin Exposure Onset/Duration: Weeks Ago - 1.5 weeks, Worse Since: - 3 days w/ a lot of itchiness Timing: Constant Onset Severity: Mild Current Severity: Moderate Pain Intensity: 0 Pain Scale Used: 0-10 Numeric Location: Diffuse - B/L arms, abdomen Character: Pruritus, Hives, Redness Aggravating Factor(s): OTC Meds, Touch Alleviating Factor(s): Nothing Associated Signs & Symptoms: Positive: Rash - B/l arms and abdomen. Negative: Fever, Chills, Drainage, Tenderness Related History: Possible Reaction to: Environmental Exposure - Allergy/Home Medications Allergies/Adverse Reactions: Allergies Allergy/AdvReac Type Severity Reaction Status Date / Time No Known Allergies Allergy Verified 11/08/18 09:59 PMH/Surg Hx/FS Hx/Imm Hx Previously Healthy: Yes Endocrine History: Dyslipidemia Cardiovascular History: Cardiac Disease Cancer History: Prostate Cancer - Surgical History Surgical History: Yes Surgery Procedure, Year, and Place: cardiac ablation, pyloric stenosis as a (194) - Family History Known Family History: Positive: Cardiac Disease, Other - mother - breast/lung CA , dementia - both parents - Social History Occupation: Retired Lives: With Family Alcohol Use: Daily Alcohol Amount: 1-2 drinks daily Substance Use Type: None Smoking Status (MU): Never Smoked Tobacco Have You Smoked in the Last Year: No - Immunization History Vaccination Up to Date: Yes Review of Systems All Other Systems Reviewed And Are Negative: Yes Constitutional: Positive: Negative Skin: Positive: Rash - B/L arms and abdomen w/ itchy rash Eyes: Positive: Negative ENT: Positive: Negative Respiratory: Positive: Negative Cardiovascular: Positive: Negative Gastrointestinal: Positive: Negative Genitourinary: Positive: Negative Motor: Positive: Negative Neurovascular: Positive: Negative Musculoskeletal: Positive: Negative Neurological: Positive: Negative Psychological: Positive: Negative Is Patient Immunocompromised?: No Physical Exam - Summary Physical Exam Summary: Vital Signs Reviewed: Yes General: well appearing, well nourished male in no acute apparent pain distress , sitting comfortably on examining table Eye Exam: Normal Eyes: Positive: Conjunctiva Clear - PERRLA< EOMI, fundi grossly normal ENT: Positive: Normal ENT inspection, Hearing grossly normal, Pharynx normal, TMs normal Neck: Positive: Supple, Nontender, No Lymphadenopathy Respiratory: Positive: Chest non-tender, Lungs clear, Normal breath sounds, No respiratory distress Cardiovascular: Positive: RRR, No Murmur, Pulses Normal, Brisk Capillary Refill Abdomen Description: Positive: Nontender, No Organomegaly, Soft. Negative: CVA Tenderness (R), CVA Tenderness (L) Bowel Sounds: Positive: Present Musculoskeletal: Positive: Strength Intact, ROM Intact, No Edema Neurological: Positive: Alert, Muscle Tone Normal Psychological Exam: Normal Skin: Positive: B/L arms and abdomen w/ scattered erythematous blisters and vesicles, particularly in linear streaks w/ mild signs of excoriation, no drainage observed, non tender to palpation. Triage Information Reviewed: Yes Vital Signs: Initial Vital Signs Temp 98.7 F 11/08/18 09:57 Pulse 62 11/08/18 09:57 Resp 16 11/08/18 09:57 BP 141/58 11/08/18 09:57 Pulse Ox 100 11/08/18 09:57 Course/Dx - Course Course Of Treatment: PT Rx Prednisone PO taper dose and Triamcinolone topical cream and advises to continue taking Benadryl PO for pruritus. If not improvement or worsening of symptoms to return to the clinic or f/u with PCP for further treatment.PT understood and agreed with D/C instructions - Differential Diagnoses - Skin Complaint Differential Diagnoses: Abscess, Cellulitis, Contact Dermatitis, Local Allergic Reaction, Poison Christina, Poison [place], Tick Born Illness, Urticaria, Other - Diagnoses Provider Diagnosis: Contact dermatitis, Poison christina dermatitis, Elevated BP without diagnosis of hypertension Discharge - Sign-Out/Discharge Documenting (check all that apply): Patient Departure - d/C home All imaging exams completed and their final reports reviewed: No Studies - Discharge Plan Condition: Stable Disposition: HOME Prescriptions: diPHENhydraMINE PO* [Benadryl PO 25 MG TAB*] 25 mg PO TID PRN #30 tab PRN Reason: pruritus predniSONE TAB* [Deltasone 20 MG TAB*] 20 mg PO DAILY #11 tab Patient Education Materials: Poison Christina (ED) Referrals: Sabina King MD [Primary Care Provider] - 3 Days Jemima Gilmore [Medical Doctor] - 3 Days Additional Instructions: 1-Please Start taking Prednisone PO taper dose to alleviate symptoms. Apply Triamcinolone topical oint BID x 7 days you have at home to alleviate rash. Avoid exposure to the sun. 2-Continue taking Benadryl PO as directed to alleviate itchiness. 3-If symptoms do not improve or worsen please f/u with your PCP or Vice President DR Gilmore in 3 days for further evaluation and treatment. 4- If symptoms worsen and you develop SOB or difficulty breathing please go immediately to the ER for further management. 5-Your BP is elevated today. please decrease salt in your diet, monitor BP and if it continues to be elevated please f/u with your PCP for further management. - Billing Disposition and Condition Condition: STABLE Disposition: Home
== END 2018-11-08 12:39 | disposition home or self-care (01) ==
LOC: UCEAST 09:51
DX: L23.7 Allergic contact dermatitis due to plants, except food (principal); R03.0 Elevated blood-pressure reading, without diagnosis of hypertension; E78.5 Hyperlipidemia, unspecified; Z85.46 Personal history of malignant neoplasm of prostate
CPT/HCPCS: 99212; G0463

== ENCOUNTER 2021-02-02 07:31 | Observation (INO) ==
[2021-02-02 08:00] LABS: INR 1.08 (0.86-1.15)
[2021-02-02 08:11] LABS: ALT 18 U/L (7-52); AST 23 U/L (13-39); Albumin 4.2 g/dL (3.2-5.2); Albumin/Globulin Ratio 1.5 (1-3); Alkaline Phosphatase 84 U/L (35-149); Anion Gap 6 mmol/L (2-11); Blood Urea Nitrogen 16 mg/dL (6-24); CO2 Carbon Dioxide 28 mmol/L (22-32); Calcium 9.6 mg/dL (8.6-10.3); Chloride 104 mmol/L (101-111); EGFR African American 87.9 (>60); EGFR Non-African American 72.6 (>60); Globulin 2.8 g/dL (2-4); Glucose 118 mg/dL (70-100); Potassium 4.2 mmol/L (3.5-5.0); Sodium 138 mmol/L (135-145)
[2021-02-02 08:15] LABS: Troponin I 0.04 ng/mL (<0.03)
[2021-02-02 08:17] LABS: ABS Eosinophils 0.1 10^3/ul (0-0.6); ABS Lymphocytes 1.5 10^3/ul (1.0-4.8); ABS Monocytes 0.5 10^3/ul (0-0.8); ABS Neutrophils 3.7 10^3/ul (1.5-7.7); Eosinophil % 1.7 %; Hematocrit 42 % (42-52); Hemoglobin 14.6 g/dL (14.0-18.0); Lymphocyte % 25.8 %; Mean Corpuscular HGB Conc 35 g/dL (31-36); Mean Corpuscular Hemoglobin 33 pg (27-31); Mean Corpuscular Volume 93 fL (80-94); Mean Platelet Volume 7.3 fL (7.4-10.4); Nucleated Red Blood Cells % 0.1; Platelet Count 204 10^3/uL (150-450); Red Blood Count 4.49 10^6 /uL (4.18-5.48); Red Cell Distribution Width 14 % (10-15); White Blood Count 5.8 10^3/uL (3.5-10.8)
[2021-02-02 11:26] LABS: Troponin I 0.04 ng/mL (<0.03)
[2021-02-02 11:38] LABS: Rapid COVID-19 Molecular Undetected (Undetected)
[2021-02-02 11:41] LABS: C Reactive Protein 2.96 mg/L (<8.01)
[2021-02-02 12:30] LABS: Erythrocyte Sed Rate 9 mm/Hr (0-19)
[2021-02-02] MEDS ORDERED: Iohexol 350 (CONTRAST) 500 ML MDV IV ONE (13:48)
[2021-02-02 16:14] LABS: Troponin I 0.03 ng/mL (<0.03)
[2021-02-02] MEDS ORDERED: cefTRIAXone 1 gm/50 mL NS BAG 1 GM/50 ML BAG IV ONE (16:57)
[2021-02-02] MEDS ORDERED: Azithromycin 500 mg/250 ml NS 500 MG/250 ML BAG IVPB ONE (16:57)
[2021-02-03] MEDS: Enoxaparin 40 MG/0.4 ML SYR SUBCUT SCH ×3 (05:28→19:53)
[2021-02-03] MEDS ORDERED: cefTRIAXone 1 gm/50 mL NS BAG 1 GM/50 ML BAG IVPB SCH (18:30)
[2021-02-03] MEDS ORDERED: Azithromycin 500 mg/250 ml NS 500 MG/250 ML BAG IVPB SCH (20:00)
[2021-02-04 05:37] LABS: Calcium 9.1 mg/dL (8.6-10.3)
[2021-02-04 15:07] VITALS: BP 140/57
== END 2021-02-04 19:20 | disposition home or self-care (01) ==
LOC: EDHOLD 07:31 → ED 07:31 → SUATTDRO 10:49 → EDHOLD 17:04 → MED 02-03 01:00
PROVIDERS: ADMIT Internal Medicine; ATTEND Internal Medicine